=== PATIENT | male | born 1955 | race Caucasian/White ===

== ENCOUNTER 2017-10-04 10:53 | Emergency (ER) | payer BC ==
--- NOTE | 2017-10-04 11:53 | ER ---
Nurse's Notes [facility] Name: Afshin Mercado Age: 62 yrs Sex: Male : 1955 Arrival Date: 10/04/2017 Time: 10:55 Bed 15 Private MD: Edwardo Maurer T Diagnosis: Low back pain Presentation: 10/04 11:18 Presenting complaint: Patient states: low back pain for years, worse yesterday, denies iw injury, hx of degenerative disc disease, pain 8/10, pain to mid low back non radiating, aggravated by certain movements. Transition of care: patient was not received from another setting of care. Onset of symptoms was October 03, 2017. Risk Assessment: Do you want to hurt yourself or someone else? Patient reports no desire to harm self or others. Initial Sepsis Screen: Does the patient meet any 2 criteria? No. Patient's initial sepsis screen is negative. Does the patient have a suspected source of infection? No. Patient's initial sepsis screen is negative. Care prior to arrival: None. 11:18 Method Of Arrival: Ambulatory iw 11:18 Acuity: LINDA 4 iw Historical: - Allergies: 11:20 NKA; iw - PMHx: 11:20 Hypertension; Hyperlipidemia; Degenerative disc disease; iw - PSHx: 11:20 None; iw - Immunization history:: Adult Immunizations not up to date. - Social history:: Smoking status: Patient/guardian denies using tobacco, the patient reports quitting approximately 2 years ago. - Ebola Screening: : Patient negative for fever greater than or equal to 101.5 degrees Fahrenheit, and additional compatible Ebola Virus Disease symptoms Patient denies exposure to infectious person Patient denies travel to an Ebola-affected area in the 21 days before illness onset No symptoms or risks identified at this time. Screenin:50 Abuse screen: Denies threats or abuse. Nutritional screening: No deficits noted. aa5 Tuberculosis screening: No symptoms or risk factors identified. Fall Risk None identified. Assessment: 11:40 General: Appears uncomfortable, Behavior is calm, cooperative. Pain: Complains of pain aa5 in low back area and mid back area Pain does not radiate. Pain currently is 8 out of 10 on a pain scale. Quality of pain is described as sharp, Pain began chronic and got worse yesterday Is continuous, Aggravated by increased activity. Neuro: Level of Consciousness is awake, alert, obeys commands, Oriented to person, place, time, situation. Cardiovascular: No deficits noted. Respiratory: Airway is patent Respiratory effort is even, unlabored, Respiratory pattern is regular, symmetrical. GI: No signs and/or symptoms were reported involving the gastrointestinal system. : No signs and/or symptoms were reported regarding the genitourinary system. EENT: No signs and/or symptoms were reported regarding the EENT system. Derm: Skin is pink, warm \T\ dry. Musculoskeletal: Range of motion: intact in all extremities. 12:20 Reassessment: Patient is alert, oriented x 3, equal unlabored respirations, skin aa5 warm/dry/pink. Patient states feeling better. Pain: Pain currently is 5 out of 10 on a pain scale. Vital Signs: 11:20 BP 150 / 75; Pulse 64; Resp 18; Pulse Ox 96% ; Weight 88.9 kg; Height 5 ft. 8 in. iw (172.72 cm); Pain 8/10; 11:55 BP 139 / 70 LA; aa5 11:57 BP 147 / 70 RA; Pulse 68; Resp 16 S; Pulse Ox 97% on R/A; Pain 8/10; aa5 11:20 Body Mass Index 29.80 (88.90 kg, 172.72 cm) iw ED Course: 10:55 Patient arrived in ED. mr 10:56 Edwardo Maurer MD is Private Physician. mr 11:19 Triage completed. iw 11:20 Arm band placed on. iw 11:43 Mena Ojeda FNP-C is [facility]. snw 11:43 Daniel Bravo MD is Attending Physician. snw 11:48 Juana Ball, RADHA is Primary Nurse. aa5 11:50 Patient has correct armband on for positive identification. Bed in low position. Call aa5 light in reach. Side rails up X 1. Adult w/ patient. 11:52 Edwardo Maurer MD is Referral Physician. snw 12:45 Patient did not have IV access during this emergency room visit. aa5 12:45 No provider procedures requiring assistance completed. aa5 Administered Medications: 12:00 Drug: fentaNYL (PF) 75 mcg Route: IM; Site: right gluteus; aa5 12:20 Follow up: Response: No adverse reaction aa5 12:00 Drug: Decadron 8 mg Route: PO; aa5 12:45 Follow up: Response: No adverse reaction aa5 Outcome: 11:52 Discharge ordered by . delroy 12:45 Discharged to home ambulatory, with significant other. aa5 12:45 Condition: improved 12:45 Discharge instructions given to patient, Instructed on discharge instructions, follow up and referral plans. medication usage, Demonstrated understanding of instructions, follow-up care, medications, Prescriptions given X 3. 12:48 Patient left the ED. aa5 Signatures: Mena Ojeda, SENIOR VICE PRESIDENT AND CHIEF INFORMATION OFFICER-C SENIOR VICE PRESIDENT AND CHIEF INFORMATION OFFICER-Stacie Burrows mr Laura Esparza, RN RN iw Juana Ball RN RN aa5 Corrections: (The following items were deleted from the chart) 12:59 11:57 BP 147 / 70 R Arm; aa5 aa5
--- NOTE | 2017-10-04 11:53 | EDPHYS ---
Physician Documentation [facility] Name: Afshin Mercado Age: 62 yrs Sex: Male : 1955 Arrival Date: 10/04/2017 Time: 10:55 Bed 15 Private MD: Edwardo Maurer T ED Physician Daniel Bravo HPI: 10/04 12:00 This 62 yrs old Male presents to ER via Ambulatory with complaints of Back snw Pain. 12:00 The patient presents with pain that is acute, that is chronic, and decreased range of snw motion, and tenderness. The symptoms are located in the low back. Onset: The symptoms/episode began/occurred gradually, and became worse yesterday. The pain does not radiate. Associated signs and symptoms: Pertinent negatives: abdominal pain, constipation, dysuria, incontinence, numbness, tingling, urinary retention, weakness. The problem was sustained when lifting heavy object. Severity of symptoms: At their worst the symptoms were severe, in the emergency department the symptoms are unchanged. The patient has experienced similar episodes in the past, but today's symptoms are worse, pt had stem cell injection 2 years ago, no repeated sessions. The patient has not recently seen a physician. Historical: - Allergies: 11:20 NKA; iw - PMHx: 11:20 Hypertension; Hyperlipidemia; Degenerative disc disease; iw - PSHx: 11:20 None; iw - Immunization history:: Adult Immunizations not up to date. - Social history:: Smoking status: Patient/guardian denies using tobacco, the patient reports quitting approximately 2 years ago. - Ebola Screening: : Patient negative for fever greater than or equal to 101.5 degrees Fahrenheit, and additional compatible Ebola Virus Disease symptoms Patient denies exposure to infectious person Patient denies travel to an Ebola-affected area in the 21 days before illness onset No symptoms or risks identified at this time. ROS: 11:59 Constitutional: Negative for fever, chills, and weight loss, Eyes: Negative for injury, snw pain, redness, and discharge, ENT: Negative for injury, pain, and discharge, Neck: Negative for injury, pain, and swelling, Cardiovascular: Negative for chest pain, palpitations, and edema, Respiratory: Negative for shortness of breath, cough, wheezing, and pleuritic chest pain, Abdomen/GI: Negative for abdominal pain, nausea, vomiting, diarrhea, and constipation, : Negative for injury, bleeding, discharge, and swelling, MS/Extremity: Negative for injury and deformity, Skin: Negative for injury, rash, and discoloration, Neuro: Negative for headache, weakness, numbness, tingling, and seizure. 11:59 Back: Positive for pain at rest, pain with movement, Negative for radiated pain. Exam: 11:58 Constitutional: This is a well developed, well nourished patient who is awake, alert, snw and in no acute distress. Head/Face: Normocephalic, atraumatic. Eyes: Pupils equal round and reactive to light, extra-ocular motions intact. Lids and lashes normal. Conjunctiva and sclera are non-icteric and not injected. Cornea within normal limits. Periorbital areas with no swelling, redness, or edema. ENT: Nares patent. No nasal discharge, no septal abnormalities noted. Tympanic membranes are normal and external auditory canals are clear. Oropharynx with no redness, swelling, or masses, exudates, or evidence of obstruction, uvula midline. Mucous membranes moist. Neck: Trachea midline, no thyromegaly or masses palpated, and no cervical lymphadenopathy. Supple, full range of motion without nuchal rigidity, or vertebral point tenderness. No Meningismus. Chest/axilla: Normal chest wall appearance and motion. Nontender with no deformity. No lesions are appreciated. Cardiovascular: Regular rate and rhythm with a normal S1 and S2. No gallops, murmurs, or rubs. Normal PMI, no JVD. No pulse deficits. Respiratory: Lungs have equal breath sounds bilaterally, clear to auscultation and percussion. No rales, rhonchi or wheezes noted. No increased work of breathing, no retractions or nasal flaring. Abdomen/GI: Soft, non-tender, with normal bowel sounds. No distension or tympany. No guarding or rebound. No evidence of tenderness throughout. Skin: Warm, dry with normal turgor. Normal color with no rashes, no lesions, and no evidence of cellulitis. MS/ Extremity: Pulses equal, no cyanosis. Neurovascular intact. Full, normal range of motion. Neuro: Awake and alert, GCS 15, oriented to person, place, time, and situation. Cranial nerves II-XII grossly intact. Motor strength 5/5 in all extremities. Sensory grossly intact. Cerebellar exam normal. Normal gait. 11:58 Back: pain, that is moderate, of the lumbar area, left low back and right low back, ROM is painful, with flexion, CVA tenderness, is absent, vertebral tenderness, is not appreciated. Vital Signs: 11:20 BP 150 / 75; Pulse 64; Resp 18; Pulse Ox 96% ; Weight 88.9 kg; Height 5 ft. 8 in. iw (172.72 cm); Pain 8/10; 11:55 BP 139 / 70 LA; aa5 11:57 BP 147 / 70 RA; Pulse 68; Resp 16 S; Pulse Ox 97% on R/A; Pain 8/10; aa5 11:20 Body Mass Index 29.80 (88.90 kg, 172.72 cm) iw MDM: 11:43 Patient medically screened. snw 12:00 Data reviewed: vital signs, nurses notes. Data interpreted: Pulse oximetry: on room air snw is 96 %. Interpretation: acceptable. Counseling: I had a detailed discussion with the patient and/or guardian regarding: the historical points, exam findings, and any diagnostic results supporting the discharge/admit diagnosis, the presence of at least one elevated blood pressure reading (>120/80) during this emergency department visit, the need for outpatient follow up, to return to the emergency department if symptoms worsen or persist or if there are any questions or concerns that arise at home. Special discussion: I have referred the patient to see his PCP for further evaluation of high blood pressure. Based on the history and exam findings, there is no indication for further emergent testing or inpatient evaluation. I discussed with the patient/guardian the need to see the back specialist for further evaluation of the symptoms. I discussed with the patient/guardian the need to see the primary care provider for further evaluation of the symptoms. 10/04 11:51 Order name: Bilateral blood pressure; Complete Time: 12:08 snw Administered Medications: 12:00 Drug: fentaNYL (PF) 75 mcg Route: IM; Site: right gluteus; aa5 12:20 Follow up: Response: No adverse reaction aa5 12:00 Drug: Decadron 8 mg Route: PO; aa5 12:45 Follow up: Response: No adverse reaction aa5 Disposition: 10/04/17 11:52 Discharged to Home. Impression: Low back pain. - Condition is Stable. - Discharge Instructions: Back Pain, Adult, Musculoskeletal Pain, Cryotherapy, Heat Therapy. - Prescriptions for Ultram 50 mg Oral Tablet - take 1 tablet by ORAL route every 8-12 hours As needed; 15 tablet. Diclofenac Sodium 75 mg Oral Tablet Sustained Release - take 1 tablet by ORAL route 2 times per day; 30 tablet. orphenadrine citrate 100 mg Oral Tablet Sustained Release - take 1 tablet by ORAL route 2 times per day As needed; 20 tablet. - Medication Reconciliation Form, Thank You Letter, Antibiotic Education, Prescription Opioid Use form. - Follow up: Edwardo Maurer MD; When: 2 - 3 days; Reason: Recheck today's complaints, Continuance of care, Re-evaluation by your physician. Follow up: Emergency Department; When: As needed; Reason: Worsening of condition. Addendum: 10/05/2017 16:08 Co-signature as Attending Physician, Daniel Bravo MD I agree with the assessment and c díaz plan of care. Signatures: Daniel Bravo MD MD cha Therrien, Shelly, TONI-C FREELANCE OPERATOR-Csnw Laura Esparza, RADHA RN iw Juana Ball RN RN aa5 Corrections: (The following items were deleted from the chart) 10/04 12:48 11:52 10/04/2017 11:52 Discharged to Home. Impression: Low back pain. Condition is aa5 Stable. Forms are Medication Reconciliation Form, Thank You Letter, Antibiotic Education, Prescription Opioid Use. Follow up: Edwardo Maurer; When: 2 - 3 days; Reason: Recheck today's complaints, Continuance of care, Re-evaluation by your physician. Follow up: Emergency Department; When: As needed; Reason: Worsening of condition. snw
[2017-10-04] MEDS ORDERED: DEXAMETHASONE 4 MG TAB ONE (11:56)
[2017-10-04] MEDS ORDERED: FENTANYL CITR 100 MCG/2 ML ONE (11:57)
== END 2017-10-04 12:48 | disposition home or self-care (01) ==
LOC: ER 10:53
DX: M54.5 Low back pain (principal); I10 Essential (primary) hypertension; E78.5 Hyperlipidemia, unspecified
CPT/HCPCS: 96372; 99283; J3010

== ENCOUNTER 2018-01-12 07:50 | Emergency (ER) | payer BC ==
--- OUTSIDE RECORDS SUMMARY | 2018-01-12 08:39 | XMS REPORT | Continuity of Care Document ---
:1955 Author Organization Interface Problems Problem Status Onset Classification Date Comments Source Date Reported SPONDYLOSIS Active [facility] 6 Ganesh DDD , Active Problem 01/24/2016 Ortho lumbar(<span and Spine ID="[id number]">Confirmed</s martini>) Acid reflux Active Problem 01/24/2016 Ortho and Spine HNP (<span Active Problem 01/24/2016 Ortho ID="[id number] and Spine 3">Confirmed</s martini>) HLD (<span Active Problem 01/24/2016 Ortho ID="[id number] and Spine 9">Confirmed</s martini>) HTN (<span Active Problem 01/24/2016 Ortho ID="[id number] and Spine 3">Confirmed</s martini>) Paresthesia of Active Problem 01/24/2016 Ortho both hands and Spine Spondylosis Active Problem 01/24/2016 Ortho and Spine Medications Medication Details Route Status Patient Ordering Order Source Instructions Provider Date Insulin, Aspart, 8 unit, 0.08 No Longer Human mL, Route: Active 2015 Ortho SUB-Q, Drug and form: SOLN, Spine Sliding Scale, Dosing Weight 88.636, kg, PRN Blood Glucose Results, Start date: 01/21/16 15:02:00 CDT, Duration: 30 day, Stop date: 02/20/16 14:01:00 CSTNotes: Roll in palms of hands gently; Do not shake vigorously. (Same as: NovoLOG) "single patient use only" WASTE: F/P - Black; E - Municipal Trash Bin Stable for 28 days at room temperature. Expires in days from D ate Acetaminophen 325 MG 1 tab, Route: No Longer / Hydrocodone PO, Drug Form: Active 2015 Ortho Bitartrate 10 MG TAB, Dosing and Oral Tablet [Kerby Weight 88.636, Spine 10/325] kg, ONCE, PRN Pain Score 4-6, Start date: 01/21/16 15:02:00 CDTNotes: Do not exceed 4gm/day of acetaminophen. (Same as: Kerby 325/10) Acetaminophen 325 MG 1 tab, Route: No Longer / Hydrocodone PO, Drug Form: Active 2015 Ortho Bitartrate 5 MG Oral TAB, Dosing and Tablet [Kerby 5/325] Weight 88.636, Spine kg, ONCE, PRN Pain Score 1-3, Start date: 01/21/16 15:02:00 CDTNotes: (Same as: Kerby 325/5) Do not exceed 4gm/day of acetaminophen. Morphine 2 mg, 0.2 mL, No Longer Route: IVP, Active 2015 Ortho Drug form: INJ, and Q5Min, Dosing Spine Weight 88.636, kg, PRN Pain Score 4-6, Start date: 01/21/16 15:02:00 CDT, Duration: 5 doses or times, Stop date: Limited # of timesNotes: (Same as:MORPhine Sulfate) Acetaminophen 1,000 mg, 2 No Longer tab, Route: PO, Active 2015 Ortho Drug form: TAB, and ONCE, Dosing Spine Weight 88.636, kg, PRN Pain Score 1-3, Start date: 01/21/16 15:02:00 CDT, Duration: 1 doses or times, Stop date: Limited # of timesNotes: Max acetaminophen 4000 mg/day (4 gm/day). (Same as: Tylenol Extra Strength) Hydralazine 10 mg, 0.5 mL, No Longer Route: IVP, Active 2015 Ortho Drug form: INJ, and Q20Min, Dosing Spine Weight 88.636, kg, PRN Elevated BP, Start date: 01/21/16 15:02:00 CDT, Duration: 2 doses or times, Stop date: Limited # of timesNotes: (Same as: Apresoline) Push over 5 minutes Labetalol 10 mg, 2 mL, No Longer Route: IVP, Active 2015 Ortho Drug form: INJ, and Q5Min, Dosing Spine Weight 88.636, kg, PRN Elevated BP, Start date: 01/21/16 15:02:00 CDT, Duration: 5 doses or times, Stop date: Limited # of times Ondansetron 4 mg, 2 mL, No Longer Route: IVP, Active 2015 Ortho Drug form: INJ, and ONCE, Dosing Spine Weight 88.636, kg, PRN Nausea & Vomiting, Start date: 01/21/16 15:02:00 CDTNotes: (Same as: Zofran) MEDICATION WASTE Product Size: 4 mg Product Wasted: ___ mg Flumazenil 0.2 mg, 2 mL, No Longer Route: IVP, Active 2015 Ortho Drug form: INJ, and PRN, Dosing Spine Weight 88.636, kg, PRN Benzodiazepine Reversal, Initial dose, Start date: 01/21/16 15:02:00 CDT, Duration: 30 day, Stop date: 02/20/16 14:01:00 CSTNotes: (Same as: Romazicon) Naloxone 0.4 mg, 1 mL, No Longer Route: IVP, Active 2015 Ortho Drug form: INJ, and Q2MIN, Dosing Spine Weight 88.636, kg, PRN Narcotic Reversal, Start date: 01/21/16 15:02:00 CDT, Duration: 8 doses or times, Stop date: Limited # of timesNotes: Same as Narcan Hydromorphone 0.5 mg, 0.25 No Longer mL, Route: IVP, Active 2015 Ortho Drug form: INJ, and Q5Min, Dosing Spine Weight 88.636, kg, PRN Pain Score 7-10, Start date: 01/21/16 15:02:00 CDT, Duration: 4 doses or times, Stop date: Limited # of timesNotes: Same as Dilaudid Acetaminophen 325 MG 1 tab, Route: No Longer / Hydrocodone PO, Drug Form: Active 2015 Ortho Bitartrate 10 MG TAB, Dosing and Oral Tablet Weight 88.636, Spine kg, Q4H, PRN Pain Score 4-6, Start date: 01/21/16 14:45:00 CDT, Duration: 30 day, Stop date: 02/20/16 14:44:00 CSTNotes: Do not exceed 4gm/day of acetaminophen. (Same as: Kerby 325/10) Morphine 2 mg, 0.2 mL, No Longer Route: IVP, Active 2015 Ortho Drug form: INJ, and Q3H, Dosing Spine Weight 88.636, kg, PRN Pain Score 1-3, Start date: 01/21/16 14:45:00 CDT, Duration: 30 day, Stop date: 02/20/16 14:44:00 CSTNotes: (Same as:MORPhine Sulfate) Ancef 2 gm, 100 mL, Inactive Route: IVPB, 2015 Ortho Drug form: INJ, and ONCE, Dosing Spine Weight 88.636, kg, Start date: 01/21/16 10:42:00 CDT, Duration: 1 doses or times, Stop date: 01/21/16 10:42:00 CDT, Surgical Prophylaxis Only; For patients Notes: Same as Ancef Lactated Ringers 1,000 mL, Rate: No Longer 1,000 mL 40 ml/hr, Active 2015 Ortho Infuse over: 25 and hr, Route: IV, Spine Dosing Weight 88.636 kg, Total Volume: 1,000, Start date: 01/21/16 10:42:00 CDT, Duration: 30 day, Stop date: 02/20/16 10:41:00 [employer] Vitamin B12 See Active Instructions, 0 2015 Ortho Refill(s) and Spine multivitamin See Active Instructions, 2016 Ortho Daily, 0 and Refill(s) Spine Hydrochlorothiazide 1 tab, PO, Active 25 MG / Losartan Daily, HOLD AM 2016 Ortho Potassium 100 MG DOS, # 90 tab, and Oral Tablet 0 Refill(s) Spine atorvastatin 10 MG 10 mg=1 tab, Active Oral Tablet PO, Bedtime, # 2016 Ortho [Lipitor] 90 tab, 0 and Refill(s) Spine Allergies, Adverse Reactions, Alerts Substance Category Reaction Severity Reaction Status Date Comments Source type Reported NKDA Assertion Drug Active allergy Ortho and Spine Immunizations Immunization Date Given Site Status Last Updated Comments Source Hx tetanus toxoid 01/17/2016 completed [facility] Admin Note: Ortho vaccine<sup>1</rao STATES REC'D and Spine p> TETANUS VACCINE WITHIN THE LAST 10YRS. Results Order Name Results Value Reference Date Interpretation Comments Source Range Spine Spine lumbar EXAM: CT LUMBAR discogram SPINE WITHOUT intravenous CONTRAST 01/20 - [facility] lumbar wo wo contrast /2015 - [facility] contrast [facility] CT DATE: 01/21/2016 at 1524 hours Read by: Marvin Gilliland MD Dictated Date/time: 01/22/16 10:35 Electronically Signed by: Marvin Gilliland MD 01/22/16 19:39 FINAL REPORT INDICATION: Backache. Status post 2 level discography of the lumbar spine. TECHNIQUE: CT discograms of the L4-L5 and L5-S1 levels of the lumbar spine were reviewed in 3 planes. FINDINGS: L4-5: Concentric concentric tear posteriorly with leakage of contrast into the anterior epidural space. Contrast can be traced up to the L2-L3 level. Contrast is also identified in the exiting left extraforaminal L4 nerve root sleeve L5-S1: Concentric subannular tear posteriorly without contrast leakage into the epidural space. Closed pars defects of L5 laterally without anterior subluxation of L5 on S1. IMPRESSION: 1. Annular tear at L4-L5 with leakage of contrast into the epidural space and the exiting left L4 nerve root. 2. Annular tear at L5-S1 without leakage. 3. Bilateral spondylolysis at L5 without spondylolisthesis. ELECTROLYTE AGAP 11.8 meq/L 10.0 - 01/20 [facility] S 20.0 and Spine ELECTROLYTE eGFR 101 01/20 Result Comment: The eGFR is calculated using the CKD-EPI formula. In most young, healthy individuals the eGFR will be > 90 mL/min/1.73m2. The eGFR declines with age. An eGFR of 60-89 may be normal in [facility] S mL/min/1.7 /2016 some populations, particularly the elderly, for whom the CKD-EPI formula has not been extensively validated. Use of the eGFR is not recommended in the following populations: and Spine 3m2 Individuals with unstable creatinine concentrations, including patients and those with serious co-morbid conditions. Patients with extremes in muscle mass or diet. The data above are obtained from the National Kidney Disease Education Program (NKDEP) which additionally recommends that when the eGFR is used in patients with extremes of body mass index for purposes of drug dosing, the eGFR should be multiplied by the estimated BMI. ELECTROLYTE Calcium Lvl 9.1 mg/dL 8.5 - 10.5 01/20 Ortho S and Spine ELECTROLYTE CO2 27 meq/L 24 - 32 01/20 Ortho S and Spine ELECTROLYTE Sodium Lvl 141 meq/L 135 - 145 01/20 Ortho S and Spine ELECTROLYTE Creatinine 0.72 mg/dL 0.50 - 01/20 Ortho S Lvl 1.40 /2015 and Spine ELECTROLYTE Glucose Lvl 99 mg/dL 70 - 99 01/20 Ortho S and Spine ELECTROLYTE BUN 12 mg/dL 7 - 22 01/20 Ortho S and Spine ELECTROLYTE Chloride Lvl 106 meq/L 95 - 109 01/20 Ortho S and Spine ELECTROLYTE Potassium 3.8 meq/L 3.5 - 5.1 01/20 Ortho S Lvl and Spine HEMATOLOGY Segs-Bands # 4.7 K/CMM 1.5 - 8.1 01/20 Ortho and Spine HEMATOLOGY Basophils 0.6 % 0.0 - 1.0 01/20 Ortho and Spine HEMATOLOGY Lymphocytes 1.9 K/CMM 1.0 - 5.5 01/20 Ortho # and Spine HEMATOLOGY Monocytes # 0.5 K/CMM 0.0 - 0.8 01/20 Ortho and Spine HEMATOLOGY Segs 65.2 % 45.0 - 01/20 Ortho 75.0 /2015 and Spine HEMATOLOGY Lymphocytes 26.2 % 20.0 - 10 Ortho 40.0 /2016 and Spine HEMATOLOGY Monocytes 7.4 % 2.0 - 12.0 01/20 Ortho and Spine HEMATOLOGY Eosinophils 0.6 % 0.0 - 4.0 01/20 Ortho and Spine HEMATOLOGY INR 0.97 0.85 - 01/20 Ortho 1.17 /2015 and Spine HEMATOLOGY PROTIME 13.1 s 12.0 - 01/20 Ortho 14.7 /2015 and Spine HEMATOLOGY aPTT 30.7 s 22.9 - 01/20 Ortho 35.8 /2016 and Spine HEMATOLOGY Hgb 15.5 g/dL 14.0 - 01/20 Ortho 18.0 /2015 and Spine HEMATOLOGY Hct 45.4 % 42.0 - 01/20 Ortho 54.0 /2016 and Spine HEMATOLOGY MCV 87.9 fL 80.0 - 01/20 Ortho 94.0 /2016 and Spine HEMATOLOGY MCH 30.1 pg 27.0 - 01/20 Ortho 31.0 /2015 and Spine HEMATOLOGY WBC 7.3 K/CMM 3.7 - 10.4 01/20 Ortho and Spine HEMATOLOGY RBC 5.16 M/CMM 4.70 - 01/20 Ortho 6. and Spine HEMATOLOGY MCHC 34.3 g/dL 32.0 - 01/20 Ortho 36.0 /2015 and Spine HEMATOLOGY RDW 13.0 % 11.5 - 01/20 Ortho 14.5 /2015 and Spine HEMATOLOGY Platelet 198 K/CMM 133 - 450 01/20 Ortho and Spine HEMATOLOGY MPV 7.9 fL 7.4 - 10.4 01/20 Ortho and Spine Vital Signs Vital Sign Value Date Comments Source Systolic (mm Hg) 150 01/21/2016 Ortho and Spine Diastolic (mm Hg) 89 01/21/2016 Ortho and Spine Respitory Rate 16 01/21/2016 Ortho and Spine Systolic (mm Hg) 141 01/21/2016 Ortho and Spine Diastolic (mm Hg) 73 01/21/2016 Ortho and Spine Respitory Rate 16 01/21/2016 Ortho and Spine Systolic (mm Hg) 145 01/21/2016 Ortho and Spine Diastolic (mm Hg) 76 01/21/2016 Ortho and Spine Respitory Rate 16 01/21/2016 Ortho and Spine Heart Rate 63 01/21/2016 Ortho and Spine Temperature Oral (F) 98 F 01/21/2016 Ortho and Spine Weight 88.636 01/17/2016 Ortho and Spine BMI Calculated 29.71 01/17/2016 Ortho and Spine Height 172.72 cm 01/17/2016 Ortho and Spine Encounters Location Location Encounter Encounter Reason Attending ADM DC Status Source Details Type Number For Provider Date Date Visit [id number] Micheller Maikel 01/20 01/21 [facility] Procedures Procedure Code Date Perfomer Comments Source Colonoscopy<sup> [id number] 2012 Ortho and 1</sup> Spine
--- NOTE | 2018-01-12 09:15 | EDPHYS ---
Physician Documentation [facility] Name: Afshin Mercado Age: 62 yrs Sex: Male : 1955 Arrival Date: 01/12/2018 Time: 07:53 Bed 15 Private MD: ED Physician Daniel Bravo HPI: 01/12 08:43 This 62 yrs old Male presents to ER via Ambulatory with complaints of Fever, jr8 Flu Symptoms. 08:43 The patient reports fever, not measured (subjective). Onset: The symptoms/episode jr8 began/occurred suddenly, 4 day(s) ago. Modifying factors: there are no obvious modifying factors. Associated signs and symptoms: Pertinent positives: chills, cough. Severity of symptoms: At their worst the symptoms were moderate in the emergency department the symptoms are unchanged. The patient has not experienced similar symptoms in the past. The patient has not recently seen a physician. Historical: - Allergies: 08:01 NKA; ss - Home Meds: 07:55 amlodipine 5 mg tab 1 tab once daily [Active]; atorvastatin 10 mg oral tab 1 tab once rb1 daily [Active]; losartan-hydrochlorothiazide 100-25 mg oral tab 1 tab once daily [Active]; - PMHx: 08:01 Degenerative disc disease; Hyperlipidemia; Hypertension; ss - PSHx: 08:01 None; ss - Immunization history:: Adult Immunizations up to date. - Social history:: Smoking status: Patient/guardian denies using tobacco, but has a distant history of tobacco abuse. - Ebola Screening: : Patient denies exposure to infectious person Patient denies travel to an Ebola-affected area in the 21 days before illness onset. ROS: 09:13 Eyes: Negative for injury, pain, redness, and discharge, ENT: Negative for injury, jr8 pain, and discharge, Neck: Negative for injury, pain, and swelling, Cardiovascular: Negative for chest pain, palpitations, and edema, Abdomen/GI: Negative for abdominal pain, nausea, vomiting, diarrhea, and constipation, Back: Negative for injury and pain, MS/Extremity: Negative for injury and deformity, Skin: Negative for injury, rash, and discoloration, Neuro: Negative for headache, weakness, numbness, tingling, and seizure. 09:13 Constitutional: Positive for chills, fever. 09:13 Respiratory: Positive for cough, Negative for dyspnea on exertion, shortness of breath, sputum production, wheezing. Exam: 09:13 Eyes: Pupils equal round and reactive to light, extra-ocular motions intact. Lids and jr8 lashes normal. Conjunctiva and sclera are non-icteric and not injected. Cornea within normal limits. Periorbital areas with no swelling, redness, or edema. ENT: Nares patent. No nasal discharge, no septal abnormalities noted. Tympanic membranes are normal and external auditory canals are clear. Oropharynx with no redness, swelling, or masses, exudates, or evidence of obstruction, uvula midline. Mucous membranes moist. Neck: Trachea midline, no thyromegaly or masses palpated, and no cervical lymphadenopathy. Supple, full range of motion without nuchal rigidity, or vertebral point tenderness. No Meningismus. Cardiovascular: Regular rate and rhythm with a normal S1 and S2. No gallops, murmurs, or rubs. Normal PMI, no JVD. No pulse deficits. Respiratory: Lungs have equal breath sounds bilaterally, clear to auscultation and percussion. No rales, rhonchi or wheezes noted. No increased work of breathing, no retractions or nasal flaring. Abdomen/GI: Soft, non-tender, with normal bowel sounds. No distension or tympany. No guarding or rebound. No evidence of tenderness throughout. Back: No spinal tenderness. No costovertebral tenderness. Full range of motion. Skin: Warm, dry with normal turgor. Normal color with no rashes, no lesions, and no evidence of cellulitis. MS/ Extremity: Pulses equal, no cyanosis. Neurovascular intact. Full, normal range of motion. Neuro: Awake and alert, GCS 15, oriented to person, place, time, and situation. Cranial nerves II-XII grossly intact. Motor strength 5/5 in all extremities. Sensory grossly intact. Cerebellar exam normal. Normal gait. Vital Signs: 08:01 BP 144 / 69; Pulse 63; Resp 15; Temp 98.3(O); Pulse Ox 99% on R/A; Weight 88 kg; Height ss 5 ft. 8 in. (172.72 cm); Pain 5/10; 09:00 BP 138 / 70; Pulse 64; Resp 18; Pulse Ox 99% on R/A; rb1 08:01 Body Mass Index 29.50 (88.00 kg, 172.72 cm) MDM: 08:01 Patient medically screened. jr8 09:13 Data reviewed: vital signs, nurses notes, lab test result(s), Flu: positive radiologic jr8 studies, plain films. Data interpreted: Pulse oximetry: on room air is 99 %. Interpretation: normal. Counseling: I had a detailed discussion with the patient and/or guardian regarding: the historical points, exam findings, and any diagnostic results supporting the discharge/admit diagnosis, lab results, radiology results, the need for outpatient follow up, a family practitioner, to return to the emergency department if symptoms worsen or persist or if there are any questions or concerns that arise at home. 09:13 ED course: Patient has had symptoms for 4 days now. Tamiflu not indicated . jr8 01/12 08:13 Order name: Flu; Complete Time: 09:13 jr8 01/12 08:13 Order name: XRAY Chest Pa And Lat (2 Views) jr8 Administered Medications: No medications were administered Disposition: 01/13 07:26 Co-signature as Attending Physician, Daniel Bravo MD I agree with the assessment and renetta plan of care. Disposition: 01/12/18 09:14 Discharged to Home. Impression: Influenza due to identified novel influenza A virus. - Condition is Stable. - Discharge Instructions: Influenza, Adult. - Medication Reconciliation Form, Thank You Letter, Antibiotic Education, Prescription Opioid Use form. - Follow up: Private Physician; When: 2 - 3 days; Reason: Recheck today's complaints, Continuance of care, Re-evaluation by your physician. - Problem is new. - Symptoms are unchanged. - Notes: Over the counter Tylenol and Ibuprofen for fever and pain OTC cough medicine as needed Signatures: Dispatcher [employer] EDOK Daniel Bravo MD MD cha Smirch, Shelby, RN RN ss Ashwin Mark PA PA jr8 Jolly Lima, RN RN rb1 Corrections: (The following items were deleted from the chart) 01/12 09:23 09:14 01/12/2018 09:14 Discharged to Home. Impression: Influenza due to identified ss novel influenza A virus. Condition is Stable. Forms are Medication Reconciliation Form, Thank You Letter, Antibiotic Education, Prescription Opioid Use. Follow up: Private Physician; When: 2 - 3 days; Reason: Recheck today's complaints, Continuance of care, Re-evaluation by your physician. Problem is new. Symptoms are unchanged. jr8
--- NOTE | 2018-01-12 09:15 | ER ---
Nurse's Notes [facility] Name: Afshin Mercado Age: 62 yrs Sex: Male : 1955 Arrival Date: 01/12/2018 Time: 07:53 Bed 15 Private MD: Diagnosis: Influenza due to identified novel influenza A virus Presentation: 01/12 08:00 Presenting complaint: Patient states: generalized body aches and mild cough that began ss 3 days ago. Unknown fever. Transition of care: patient was not received from another setting of care. Onset of symptoms was January 09, 2018. Risk Assessment: Do you want to hurt yourself or someone else? Patient reports no desire to harm self or others. Initial Sepsis Screen: Does the patient meet any 2 criteria? No. Patient's initial sepsis screen is negative. Does the patient have a suspected source of infection? No. Patient's initial sepsis screen is negative. Care prior to arrival: None. 08:00 Method Of Arrival: Ambulatory ss 08:00 Acuity: LINDA 4 ss Historical: - Allergies: 08:01 NKA; ss - Home Meds: 07:55 amlodipine 5 mg tab 1 tab once daily [Active]; atorvastatin 10 mg oral tab 1 tab once rb1 daily [Active]; losartan-hydrochlorothiazide 100-25 mg oral tab 1 tab once daily [Active]; - PMHx: 08:01 Degenerative disc disease; Hyperlipidemia; Hypertension; ss - PSHx: 08:01 None; ss - Immunization history:: Adult Immunizations up to date. - Social history:: Smoking status: Patient/guardian denies using tobacco, but has a distant history of tobacco abuse. - Ebola Screening: : Patient denies exposure to infectious person Patient denies travel to an Ebola-affected area in the 21 days before illness onset. Screenin:55 Abuse screen: Denies threats or abuse. Nutritional screening: decreased appetite . rb1 Tuberculosis screening: No symptoms or risk factors identified. Fall Risk None identified. Assessment: 07:55 General: Appears uncomfortable, Behavior is calm, cooperative, Reports chills for fever rb1 for feeling ill for fatigue for since Thursday. Pain: Complains of pain in generalized Pain currently is 5 out of 10 on a pain scale. Quality of pain is described as aching. Neuro: Level of Consciousness is awake, alert, obeys commands, Oriented to person, place, time, situation. Cardiovascular: Capillary refill < 3 seconds is brisk in bilateral fingers. Respiratory: Reports cough that is productive, green sputum Airway is patent Respiratory effort is even, unlabored, Respiratory pattern is regular, symmetrical. GI: Reports diarrhea. : No signs and/or symptoms were reported regarding the genitourinary system. Derm: Skin is pink, warm \T\ dry. 08:45 Reassessment: Patient appears in no apparent distress at this time. No changes from rb1 previously documented assessment. at bedside. Vital Signs: 08:01 BP 144 / 69; Pulse 63; Resp 15; Temp 98.3(O); Pulse Ox 99% on R/A; Weight 88 kg; Height ss 5 ft. 8 in. (172.72 cm); Pain 5/10; 09:00 BP 138 / 70; Pulse 64; Resp 18; Pulse Ox 99% on R/A; rb1 08:01 Body Mass Index 29.50 (88.00 kg, 172.72 cm) ED Course: 07:53 Patient arrived in ED. rg4 07:55 Patient has correct armband on for positive identification. Bed in low position. Call rb1 light in reach. Side rails up X 1. Pulse ox on. NIBP on. 08:01 Triage completed. ss 08:01 Ashwin Mark PA is PHCP. jr8 08:01 Daniel Bravo MD is Attending Physician. jr8 08:01 Arm band placed on right wrist. ss 08:13 Jolly Lima, RN is Primary Nurse. rb1 08:27 Flu Sent. mh5 08:27 Flu and/or RSV swab sent to lab. mh5 08:33 Patient moved to radiology via wheelchair. mh1 08:34 XRAY Chest Pa And Lat (2 Views) In Process Unspecified. EDMS 08:40 Patient moved back from radiology. 1 09:23 No provider procedures requiring assistance completed. Patient did not have IV access ss during this emergency room visit. Administered Medications: No medications were administered Outcome: 09:14 Discharge ordered by . jr8 09:23 Discharged to home ambulatory. 09:23 Condition: good 09:23 Discharge instructions given to patient, family, Instructed on discharge instructions, follow up and referral plans. Demonstrated understanding of instructions, follow-up care. 09:23 Patient left the ED. ss Signatures: Dispatcher [employer] Karen Leal 1 Khalida Justice RN RN Ashwin Mark PA PA 8 Jolly Lima RN RN [facility] Kenia Guerrero 4 Stacie Thornton 5
--- NOTE | 2018-01-12 09:24 | RAD REPORT ---
EXAM DESCRIPTION: Judy Edwards (2 Views)01/12/2018 8:43 am CLINICAL HISTORY: Cough COMPARISON: 2009 FINDINGS: The lungs appear clear of acute infiltrate. The heart is normal size IMPRESSION: No acute abnormalities displayed
== END 2018-01-12 09:23 | disposition home or self-care (01) ==
LOC: ER 07:50
DX: J10.1 Influenza due to other identified influenza virus with other respiratory manifestations (principal); I10 Essential (primary) hypertension; E78.5 Hyperlipidemia, unspecified
CPT/HCPCS: 71046; 87804; 99283

== ENCOUNTER 2019-11-19 08:21 | Emergency (ER) | payer OTHER, BC ==
[2019-11-19] MEDS ORDERED: dexAMETHasone 10 MG/ML VIAL ONE (09:04)
[2019-11-19] MEDS ORDERED: KETOROLAC 30 MG/ML INJ ONE (09:04)
--- OUTSIDE RECORDS SUMMARY | 2019-11-19 09:09 | XMS REPORT | Continuity of Care Document ---
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 ctures are unremarkable. There is no evidence of obstruction or ileus. A normal appendix is visualized. Evaluation of the gastrointestinal structures is limited due to lack of oral contrast. 9. Small right inguinal ciera ia measuring 2.7 x 2.3 cm in cross-section. There is no herniation of bowel. 10. The heart is normal in size. There is no per icardial effusion. 11. Mild coronary artery calcifications. 12. The regional skeleton is unremarkable. SL: [id number] Chest 1view DX Clinical Indication: - none ; no history is provided at the time of dictation. 07/01/2018 [facility] Comparison: Prior radiographs dated 06/28/2018. FINDINGS: The portable AP single view radiograph provided for review. The exam demonstrates limite d decreased lung volumes without dense airspace consolidation, large pleural effusion or detectable pneumothorax. The heart size and pulmonary vasculature are nor mal. The trachea is midline. There are no clinically significant osseous abno rmalities noted. Overlapping electrocardiogram leads and wires. IMPRESSION: No chest radiographic evidence of acute cardiopu lmonary disease. SL: APATIL-M Chest 2 views DX Clinical Indication: 63 years Male with Coughing - preop 06/28/2018 [facility] Comparison: None FINDINGS: The PA and lateral chest radiographs shows kenn l lung volumes. No interstitial or airspace opacities. No pleural effusion. No pneumothorax. The cardiac silhouette is normal. Mild prominence of the left hilar region due to prominent pulmonary vasculature. The trachea is midline. There are no acute osseous abnormalities noted. IMPRESSION: No acute cardiopulmonary abnormality. SL: [id number] Abdominal Aorta with Clinical Indication: - I70. 0 Atherosclerosis of aorta, I73.9 Peripheral vascular disease, unspecified; preoperative evaluation for arterial blockage in the legs. 06/15/2018 [facility] runoff CTA Comparison: None TECHNIQUE: CT angiography of the abdomen, pelvis, and bilateral lower extremities was performed after administration of iodinated contrast. Coronal and sagittal reconstructions were obtained. 3-D recons truction imaging, MIP with p ostprocessing was also performed of the arterial vessels. CT imaging performed at this location utilizes radiation dose optimization techniques which include one or more of the following: -Automated exposure control -Adjustment of the mA and/or kV according to pat ient size -Use of iterative reconstruction technique CT Radiation Dose DLP 609 mGy-cm FINDINGS: ARTERIAL EVALUATION: Severe multifocal atheroscle rosis throughout the abdominal aorta without significant stenosis or aneurysm. No dissection. The celiac, superior mesente shekhar and inferior mesenteric arteries appear unremarkable. The visceral arterial branches appear unremarkable. The renal arteries are patent. RIGHT LOWER EXTREMITY: Aortoiliac inflow: Multifoca l atherosclerosis in the right common iliac artery. There is a focal moderate to severe stenosis of the distal right common iliac artery (approximately 75%). Femoral-popliteal outflow: T he common femoral, superficial femoral, and popliteal arteries are patent. The profunda femoris artery is also patent. Infrapopliteal runoff: The a nterior tibial, posterior tibial, and peroneal arteries are patent. The dosalis pedis artery is patent. LEFT LOWER EXTREMITY: Aortoiliac inflow: The commo n iliac and external iliac arteries are patent. Severe multifocal stenosis of the left common iliac artery (greater than 90%). Femoral-popliteal outflow: T he common femoral, superficial femoral, and popliteal arteries are patent. The profunda femoris artery is also patent. Infrapopliteal runoff: The a nterior tibial, posterior tibial, and peroneal arteries are patent. The dosalis pedis artery is patent. VISUALIZED LUNG BASES: Unremarkable. ABDOMINAL SOLID ORGANS: The arterial phase contrast-enhanced images of the liver, spleen, pancreas, kidneys and adrenals are unremarkable. The gallbladder is present. PERITONEUM AND RETROPERITONE UM: There is no retroperitoneal or abdominal lymphadenopathy. There is no abdominal ascites. STOMACH AND BOWEL: No eviden ce of bowel obstruction. No bowel wall thickening or perienteric inflammation. BLADDER: The bladder is unremarkable. OSSEOUS STRUCTURES: There are no acute osseous a bnormalities seen. IMPRESSION: 1. Left leg: Severe multifo mandie stenosis of the left common iliac artery (greater than 90%). 2. Right leg: Moderate to s evere stenosis of the right common iliac artery (approximately 75%). 3. No acute abnormality abdomen or pelvis. SL: [id number] Spine lumbar wo EXAM: CT LUMBAR discogram SPINE WITHOUT intravenous CONTRAST 01/21/[address] [facility] [place] contrast CT DATE: 01/21/2016 at 1524 hours INDICATION: Backache. Status post 2 level discog glen of the lumbar spine. TECHNIQUE: CT discograms of the L4-L5 and L5-S1 levels of the lumbar spine were reviewed in 3 planes. FINDINGS: L4-5: Concentric concentric tear posteriorly with leakage of contrast into the anterior epidural space. Contrast can be traced up to the L2-L3 level. Contrast is also identified in the exiting left extraforaminal L4 nerve root sleeve L5-S1: Concentric subannula r tear posteriorly without contrast leakage into the epidural space. Closed pars defects of L5 laterally without ante rior subluxation of L5 on S1. IMPRESSION: 1. Annular tear at L4-L5 wi th leakage of contrast into the epidural space and the exiting left L4 nerve root. 2. Annular tear at L5-S1 without leakage. 3. Bilateral spondylolysis at L5 without spondy lolisthesis. Consultation Notes No Data Provided for This Section Discharge Summaries No Data Provided for This Section History and Physicals No Data Provided for This Section Vital Signs Vital Sign Value Date Comments Source Respitory Rate 13 07/01/2018 [facility] Systolic (mm Hg) 124 07/01/2018 [facility] [facility] Diastolic (mm Hg) 109 07/01/2018 [facility] st Systolic (mm Hg) 141 07/01/2018 [place] Diastolic (mm Hg) 74 07/01/[address] Respitory Rate 14 07/01/2018 [place] Systolic (mm Hg) 140 07/01/2018 [place] Diastolic (mm Hg) 68 07/01/2018 [facility] st Respitory Rate 11 07/01/2018 [facility] Height 170 cm 06/30/2018 [facility] Weight 88.001 06/30/2018 [facility] BMI Calculated 30.45 06/30/2018 [facility] Heart Rate 61 06/28/2018 [facility] Temperature Oral (F) 97.8 F 06/28/2018 [facility] Weight 88.182 06/28/2018 [facility] BMI Calculated 30.45 06/28/2018 [facility] Height 170.18 cm 06/28/2018 [facility] Systolic (mm Hg) 150 01/21/2016 [facility] Diastolic (mm Hg) 89 01/21/2016 [facility] Respitory Rate 16 01/21/2016 [facility] Systolic (mm Hg) 141 01/21/2016 [facility] Diastolic (mm Hg) 73 01/21/2016 [facility] Respitory Rate 16 01/21/2016 [facility] Systolic (mm Hg) 145 01/21/2016 [facility] Diastolic (mm Hg) 76 01/21/2016 [facility] Respitory Rate 16 01/21/2016 [facility] Heart Rate 63 01/21/2016 [facility] Temperature Oral (F) 98 F 01/21/2016 [facility] Weight 88.636 01/17/2016 [facility] BMI Calculated 29.71 01/17/2016 [facility] Height 172.72 cm 01/17/2016 [facility] Encounters Location Location Encounter Encounter Reason Attending ADM [place] Stat us Source Details Type Number For Provider Date Date Visit [facility] Surgery [id number] Amir Maikel 01/20 01/21 [facility] [place] /2015 [facility] Outpatient [id number] Fernando 06/15 06/16 [facility] Inpatient [id number] 06/30 07/01 [facility]2018 [facility] Outpatient [id number] Fernando 07/16 07/17 [facility] Outpatient [id number] [place] 07/20 Active [facility] [place] Outpatient [id number] Campbell 10/19 Active [facility] Ambulatory [id number] Campbell 10/19 10/19 [facility] [place] Procedures Procedure Code Date Perfomer Comments Source Colonoscopy<sup> [id number] 2012 Medic al 1</sup> Group[id number] Assessment and Plan Date Source Extracted from:Title: Clinical Document 07/01/2018 [facility] Author: Gina Robles [employer] Date: 07/01/18 Discharge Summary Name: Record Number: Admission Date: 06/30/2018 Discharge Date: 07/01/2018 Copies to: Diagnoses: CAD Procedures: Abdominal and bilateral lowe r extremity angiogram, shockwave lithotripsy treatment of bilateral common iliac artery, stent grafting of the bilateral common iliac artery with stenting of the left common/external iliac artery. Chief Complaint: PVD s/p abdoiminal and lower extremity angiogram with shockwave lithotripsy treatment of bilateral common iliac artery, stent grafting of the bilateral common iliac artery with stenting of the left common/external iliac artery. PMH: PVD, HTN, HLD, GERD Hospital course: Pt admitted with PVD an d underwent an abdominal and bilateral lower extrermity angiogram, shockwave lithotripsy treatment of bilateral common iliac artery, stent grafting of the bilater al common iliac artery with stenting of the left common/external iliac artery. Pt did well after surgery and was discharged to home in stable condition. Discharge condition: Stable and Improved. Discharge therapy: Medications: As per medication reconcillation sheet. Diet: Cardiac Activity: As tolerated and no heavy lifting for one week. Follow up: Pt to follow up with Dr. Braga two weeks after discharge. Extracted from:Title: Clinical Document Author: Fernando Braga MD Date: 06/30/18 OPERATIVE REPORT Date: June 30, 2018 Surgeon: Fernando Braga MD Preoperative diagnosis: Peripheral vascular disease Postoperative diagnosis: Same Procedure: Abdominal and bilateral lower extremity angiogram, shockwave lithotripsy treatment of bilateral common iliac artery, stent grafting of the bilateral common iliac artery with stenting of the left common/external iliac artery. Indication: Claudication In detail: The patient was taken to the operating r oom and given intravenous sedation. Both groins were prepped and draped in usual sterile manner. Bilateral femoral access was achieved using ultrasound guidance and micropuncture technique and the pat ient was heparinized. A 5 Grenadian sheath were inserted which were later changed to 7 Grenadian. Abdominal bilateral lower extremity angiogram was performed. The re nal arteries and the aorta was patent. The distal aorta has some disease no noncritical. Both iliac arteries and distal aorta were very heavily calcified. The right common iliac artery had about a 90 % stenosis in the lower third. The righ t external iliac artery and the remainder of the circulation was widely patent with three-vessel runoff. On the left side there was near total occlusion of the p roximal left common iliac artery with di ffuse disease and what appears to be an occlusion of the hypogastric artery. The distal external iliac artery was patent so were the rest of the vessels distally with three-vessel runoff. The 7 x 60 s hockwave balloon was used and 180 shocks were delivered to each iliac artery. The angiogram showed a significant improvement with much greater residual lumen how ever there was a slight dissection in th e proximal common iliac artery and fair amount of dissection in the left common iliac artery. The right side was treated with a 8X59 VBX inflated to 10 patricio. An additional short 8 mm was deployed more distally due to what appears to be an ulcerated area that needed to be covered proximal to the takeoff of the hypogastric. The angiogram showed slight residual f illing behind the stent graft however it appears to be a problem. A 7 x 39 VBX stent was deployed on the left. It covered the diseased area however there was still an area of dissection distally and a n 8 x 14 PICC was deployed across the ta keoff of the hypogastric artery which was now patent after the shockwave treatment. He had very good flow distally. Both sheaths were removed and hemostasis was achieved with a minx device and heparin was reversed with p rotamine. Please send a copy of this to Dr. Wyman Plan of Care No Data Provided for This Section Social History Social History Date Source Social History TypeResponse 06/30/2018 [facility] Substance Abuse Use: None. Cessation Education Provided: Yes. Sexual Sexually active: No. Sexually active at age 20 Years. Exercise Exercise duration: 20. Employment/School Status: Retired. Alcohol Current, Type Beer. Frequency: 1-2 time s per week. Started age 20 Years. Stopped age 63 Years. Previous treatment: None. Alcohol use interferes with work or home: No. Drinks more than intended: N o. Others hurt by drinking: No. Ready to change: No. Household alcohol concerns: No. Smoking Status Former smoker; Type: Cigarettes; Previou s treatment: None; Ready to change: Yes; Concerns about tobacco use in household: No; Exposure to Tobacco Smoke None; Cigarette Smoking Last 365 Days No; Reg Smok ing Cessation Counseling Yes; Tobacco us e per day: 0; Number of years: 38; Total pack years: 45; Started at age: 15.0; Stopped at age: 63.0; Other Tobacco Frequency none; entered on: 06/30/18 Social History TypeResponse 06/30/2018 [facility] Rochelle guzman Substance Abuse Use: None. Cessation Education Provided: Yes. Sexual Sexually active: No. Sexually active at age 20 Years. Exercise Exercise duration: 20. Employment/School Status: Retired. Alcohol Current, Type Beer. Frequency: 1-2 time s per week. Started age 20 Years. Stopped age 63 Years. Previous treatment: None. Alcohol use interferes with work or home: No. Drinks more than intended: N o. Others hurt by drinking: No. Ready to change: No. Household alcohol concerns: No. Smoking Status Former smoker; Type: Cigarettes; Ready t o change: Yes; Concerns about tobacco use in household: No; Exposure to Tobacco Smoke None; Cigarette Smoking Last 365 Days No; Reg Smoking Cessation Counseling Y es; Tobacco use per day: 20; Stopped at age: 59; Other Tobacco Frequency Pt. quit in 2016.; 1 entered on: 07/20/18 1quit 1 yr ago Social History TypeResponse 01/21/2016 [facility] Substance Abuse Use: None. Exercise Exercise type: Walking. Alcohol Current, Type Beer. Frequency: 1-2 times per week. Smoking Status Former smoker; Type: Cigarettes; Tobacco use per day: 20; Stopped at age: 59; Exposure to Tobacco Smoke None; Cigarette Smoking Last 365 Days No; Reg Smoking Cessation Counseling No1 1quit 1 yr ago Family History No Data Provided for This Section Advance Directives No Data Provided for This Section Functional Status No Data Provided for This Section
--- OUTSIDE RECORDS SUMMARY | 2019-11-19 09:12 | XMS REPORT | Continuity of Care Document ---
:1955 Author Organization [facility] t Address [address] [place] [address] Care Team Providers Name Role Phone OMI Attending Clinician Unavailable [facility] Attending Clinician Unavailable Milagro Joshi Attending Clinician Omi Attending Clinician Milagro Ko Attending Clinician Omi Admitting Clinician Problems Condition Condition Condition Status Onset Resolution Last Treating Co mments Source Name Details Category Date Date Treatment Clinician Date N28.81, Diagnosis Active 2018-07-16 Me moria Z98.890 4-03 15:58:00 l N28.81, 00:00: Ganesh Z98.890 00 Active 07/14/2018 [place] UNK Diagnosis Active 2018-06-24 Mem oria 3-07 13:28:00 l UNK 00:00: [place] 00 Active 06/17/2018 [place] I73.9 Diagnosis Active 2018-06-30 Mem oria 3-07 05:17:00 l I73.9 00:00: [place] 00 Active 06/17/2018 [place] PERIPHERAL Diagnosis Active 2018-07-01 Memoria VASCULAR 3-07 11:03:00 l DISEASE 00:00: [place] PERIPHERAL 00 VASCULAR DISEASE Active 06/17/2018 [place] CTA AORTA Diagnosis Active 2018-06-15 Memoria W/FEMORAL 06-09 07:00:00 l FUNOFF DX: CTA 00:00: Joseluis n I70.0=AT AORTA 00 W/FEMORAL FUNOFF DX: I70.0=AT Active 06/09/2018 [facility] SPONDYLOSI Diagnosis Active 2015-042016-09-16 Memoria S 0-06 22:37:00 l 00:00: Ganesh SPONDYLOSI 00 S Active 01/17/2016 [facility] Ganesh PVD PVD Problem Active Univers (periphera (periphera it y of l vascular l vascular [place] disease) disease) Physic i ans Bilateral Bilateral Problem Active Uni vers carotid carotid ity of artery artery [place] disease disease Physici ans Aortic Aortic Problem Active Univers atheroscle atheroscle it y of rosis rosis [place] Physici ans Enlarged Enlarged Problem Active Unive rs kidney kidney ity of [place] Physici ans S/P S/P Problem Active Univers angiogram angiogram ity of of of [place] extremity extremity Phys ici ans Degenerati Problem Active 2018-10-21 M emoria on of 21:53:14 l lumbar Ganesh interverte Degenerati bral disc on of (disorder) lumbar interverte bral disc (disorder) Active Problem 10/21/2018 [facility] Gastroesop Problem Active 2018-10-21 M emoria hageal 21:53:14 l reflux [place] disease Gastroesop (disorder) hageal reflux disease (disorder) Active Problem 10/21/2018 [facility] Herniation Problem Active 2018-10-21 M emoria of nucleus 21:53:14 l pulposus Ganesh (disorder) Herniation of nucleus pulposus (disorder) Active [facility]/21[facility] Hyperlipid Problem Active 2018-10-21 M emoria emia 21:53:14 l (disorder) Joseluis n Hyperlipid emia (disorder) Active Problem 10/21/2018 [facility] Hypertensi Problem Active 2018-10-21 M emoria ve 21:53:14 l disorder, Ganesh systemic Hypertensi arterial ve (disorder) disorder, systemic arterial (disorder) Active Problem 10/21/2018 [facility] Paresthesi Problem Active 2018-10-21 M emoria a of hand 21:53:14 l (finding) Ganesh Paresthesi a of hand (finding) Active Problem 10/21/2018 [facility] Spondylosi Problem Active 2018-10-21 M emoria s 21:53:14 l (disorder) Joseluis n Spondylosi s (disorder) Active Problem 10/21/2018 [facility] PERIPHERAL Diagnosis Active 2018-07-01 Memoria VASCULAR 11:03:00 l DISEASE, [place] UNSPECIFIE PERIPHERAL D VASCULAR DISEASE, UNSPECIFIE D Active [facility] Allergies, Adverse Reactions, Alerts Allergy Allergy Status Severity Reaction(s) Onset Inactive Treating Comm ents Source Name Type Date Date Clinician No Known No Known Active Memori a Medicati Medicati l on on Ganesh Allergie Allergie s s Social History Social Habit Start Date Stop Date Quantity Comments Source Social History 2016-01-21 2016-01-21 [facility] H ermann 15:23:48 15:23:48 Smoking Status Start Date Stop Date Source Ex-smoker (finding) [place] [facility] Physicians Medications Ordered Filled Start Stop Current Ordering Indication Dosage Frequency Signature Comments Components Source Medication Medication Date Date Medication? Clinician (SIG) Name Name Omnipaque Yes Notes: Memori a 350 4-05 (same l injectable 22:00: as:Omnipaq H ermann solution 00 ue 350). WASTE: F/P - Black; E - Municipal Trash Bin clopidogrel Yes 75 mg = 1 M emoria 75 mg oral 3-21 tab, PO, l tablet 14:40: Daily, # [place] 00 90 tab, 3 Refill(s) Aspirin 81 Yes 81 mg = 1 Me moria MG Enteric 3-21 tab, PO, l Coated 14:40: Daily, # Ganesh Tablet 00 90 tab, 3 Refill(s) Aspirin 81 No 81 mg = 1 Me moria MG Enteric 3-21 tab, PO, l Coated 14:39: Daily, 0 [place] Tablet 00 Refill(s) clopidogrel No 75 mg = 1 M emoria 75 mg oral 3-21 tab, PO, l tablet 14:39: Daily, 0 Ganesh 00 Refill(s) Aspirin No Notes: Do Memor ia -21 not crush l 14:00: or chew. [place] 00 (Same As: Ecotrin) Cozaar No Notes: Memoria 3-21 (Same as: l 14:00: Cozaar) Ganesh 00 Hydrochloro No 1 tab, Al piter thiazide 25 3-21 Route: PO, l MG / 14:00: Drug Form: Ganesh Losartan 00 TAB, Potassium Dosing 100 MG Oral Weight Tablet 88.182, kg, Daily, Start date: 07/01/18 9:00:00 CDT, Duration: 30 day, Stop date: 07/30/18 9:00:00 CDT Amlodipine 2019-0 No Notes: Memor ia 3-21 (Same as: l 14:00: Norvasc) hydrochloro 2018-0 No Notes: Al piter thiazide 25 3-21 (Same as: l mg oral 14:00: Hydrodiuri Herm quinn tablet 00 l) With food. Plavix No Notes: Memoria 3-21 (Same As: l 14:00: Plavix) Lipitor 2018-0 No Notes: Memoria 3-21 (Same As: l 02:00: Lipitor) Oxycodone 2019-0 No 5 mg, Memoria Hydrochlori 3-20 Route: PO, l de 5 MG 17:44: Drug form: Herm quinn Oral Tablet 00 TAB, ONCE, Dosing Weight 88.182, kg, PRN Pain Score 4-6, Start date: 06/30/18 12:44:00 CDT Ondansetron 2018-0 No 4 mg, Memor ia 3-20 Route: l 16:43: IVP, ONCE, Dosing Weight 88.182, kg, PRN Nausea & Vomiting, Start date: 06/30/18 11:43:00 CDT Naloxone 2019-0 No 0.4 mg, Memori a 3-20 Route: l 16:43: IVP, Q2MIN, Dosing Weight 88.182, kg, PRN Narcotic Reversal, Start date: 06/30/18 11:43:00 CDT, Duration: 8 doses or times, Stop date: Limited # of times Flumazenil 2019-0 No 0.2 mg, Al piter 3-20 Route: l 16:43: IVP, PRN, Dosing Weight 88.182, kg, PRN Benzodiaze pine Reversal, Initial dose, Start date: 06/30/18 11:43:00 CDT, Duration: 30 day, Stop date: 07/30/18 11:42:00 CDT Hydralazine 2019-0 No 10 mg, Al piter 3-20 Route: l 16:43: IVP, [place] 00 Q20Min, Dosing Weight 88.182, kg, PRN Elevated BP, Start date: 06/30/18 11:43:00 CDT, Duration: 2 doses or times, Stop date: Limited # of times Acetaminoph No Notes: Al piter en 325 MG / 3-20 (Same as: l Hydrocodone 15:55: [place] Ольга nn Bitartrate 00 325/5) Do 5 MG Oral not exceed Tablet 4gm/day of [[place] acetaminop 5/325] hen. Acetaminoph No Notes: Do M emoria en 3-20 not exceed l 15:54: 4 gm/day. Ganesh 00 (Same as: Tylenol) Sodium No 1,000 mL, Memori a Chloride 3-20 Rate: 75 l 0.9% IV 15:54: ml/hr, Ganesh 1,000 mL 00 Infuse over: 13.3 hr, Route: IV, Dosing Weight 88.182 kg, Total Volume: 1,000, Start date: 06/30/18 10:54:00 CDT, Duration: 30 day, Stop date: 07/30/18 10:53:00 CDT, 2.06, m2 Morphine No 2 mg, 1 Memori a 3-20 mL, Route: l 15:54: IVP, Drug form: SOLN, Q2H, Dosing Weight 88.182, kg, PRN Pain Score 7-10, Start date: 06/30/18 10:54:00 CDT, Duration: 30 day, Stop date: 07/30/18 10:53:00 CDT Hydralazine No Notes: Al piter 3-20 (Same as: l 15:54: Apresoline ) Push over 5 minutes Aspirin No Notes: Do Memor ia 3-20 not crush l 15:48: or chew. (Same As: Ecotrin) Plavix No Notes: ( Memoria 3-20 Same as: l 15:48: Plavix) hydrALAZINE No Route: IV, Memoria (ANES) 3-20 Drug form: l 15:47: INJ, ONCE, Stop date: 06/30/18 10:47:00 CDT protamine No Route: IV, Me moria (ANES) 10 3-20 Drug form: l mg 15:38: INJ, Start date: 06/30/18 10:38:00 CDT, Stop date: 06/30/18 11:38:00 CDT ondansetron No Route: IV, Memoria (ANES) 3-20 Drug form: l 15:01: INJ, ONCE, Stop date: 06/30/18 10:01:00 CDT heparin No Route: IV, Al piter (ANES) 3-20 Drug form: l 14:16: INJ, ONCE, Stop date: 06/30/18 9:16:00 CDT metoclopram No Route: IV, Memoria seth (ANES) 3-20 Drug form: l 13:36: INJ, ONCE, Stop date: 06/30/18 8:36:00 CDT midazolam 2018-0 No Route: IV, Me moria (ANES) 3-20 Drug form: l 13:36: SOLN, 00 ONCE, Stop date: 06/30/18 8:36:00 CDT fentaNYL No Route: IV, Mem oria (ANES) 3-20 Drug form: l 13:36: INJ, ONCE, Stop date: 06/30/18 8:36:00 CDT Lactated No Route: IV, Mem oria Ringers 3-20 Total l Injection 12:47: Volume: Ольга nn IV (ANES) 00 1,000, 1000 mL Start date: 06/30/18 7:47:00 CDT, Stop date: 06/30/18 8:47:00 CDT Calcium 2018-0 No 1,000 mL, Memor ia Chloride 3-20 Rate: 25 l 0.0014 12:34: ml/hr, Ganesh MEQ/ML / 00 Infuse Potassium over: 40 Chloride hr, Route: 0.004 IV, Dosing MEQ/ML / Weight Sodium 88.182 kg, Chloride Total 0.103 Volume: MEQ/ML / 1,000, Sodium Start Lactate date: 0.028 06/30/18 MEQ/ML 7:34:00 Injectable CDT, Solution Duration: 30 day, Stop date: 07/30/18 7:33:00 CDT, 2.06, m2 amLODIPine Yes 5 mg = 1 Mem oria 5 mg oral 3-18 tab, PO, l tablet 18:20: Daily, 0 [place] 00 Refill(s) Omnipaque Yes Notes: Memori a 350 3-05 (same l injectable 15:00: as:Omnipaq H ermann solution 00 ue 350). WASTE: F/P - Black; E - Municipal Trash Bin Insulin, 2015-04 No Notes: Memoria Aspart, 0-10 Roll in l Human 20:02: palms of Ganesh 00 hands gently; Do not shake vigorously . (Same as: NovoLOG) "single patient use only" WASTE: F/P - Black; E - Municipal Trash Bin Stable for 28 days at room temperatur e. Expires in days from ____Date Acetaminoph 2015-04 No Notes: Do M emoria en 325 MG / 0-10 not exceed l Hydrocodone 20:02: 4gm/day of Ganesh Bitartrate 00 acetaminop 10 MG Oral hen. Tablet (Same as: [[place] 10/325] 325/10) Acetaminoph 2015-04 No Notes: Al piter en 325 MG / 0-10 (Same as: l Hydrocodone 20:02: [place] Ольга nn Bitartrate 00 325/5) Do 5 MG Oral not exceed Tablet 4gm/day of [[place] acetaminop 5/325] hen. Morphine 2015-04 No Notes: Memoria 0-10 (Same l 20:02: as:MORPhin [place] 00 e Sulfate) Acetaminoph 2015-04 No Notes: Max Memoria en 0-10 acetaminop l 20:02: hen 4000 Ganesh 00 mg/day (4 gm/day). (Same as: Tylenol Extra Strength) Hydralazine 2015-04 No Notes: Al piter 0-10 (Same as: l 20:02: Apresoline Ganesh 00 ) Push over 5 minutes Labetalol 2015-04 No 10 mg, 2 Al piter 0-10 mL, Route: l 20:02: IVP, Drug form: INJ, Q5Min, Dosing Weight 88.636, kg, PRN Elevated BP, Start date: 01/21/16 15:02:00 CDT, Duration: 5 doses or times, Stop date: Limited # of times Ondansetron 2015-04 No Notes: Al piter 0-10 (Same as: l 20:02: Zofran) MEDICATION WASTE Product Size: 4 mg Product Wasted: ___ mg Flumazenil 2015-04 No Notes: Memor ia 0-10 (Same as: l 20:02: Romazicon) Naloxone 2015-04 No Notes: Memoria 0-10 Same as l 20:02: Narcan Hydromorpho 2015-04 No Notes: Al piter ne 0-10 Same as l 20:02: Dilaudid Acetaminoph 2015-04 No Notes: Do M emoria en 325 MG / 0-10 not exceed l Hydrocodone 19:45: 4gm/day of Ganesh Bitartrate 00 acetaminop 10 MG Oral hen. Tablet (Same as: [place] 325/10) Morphine 2015-04 No Notes: Memoria 0-10 (Same l 19:45: as:MORPhin e Sulfate) Ancef 2015-04 Yes Notes: Memoria 0-10 Same as l 15:42: Ancef Ganesh 00 Lactated 2015-04 No 1,000 mL, Al piter Ringers 0-10 Rate: 40 l 1,000 mL 15:42: ml/hr, Infuse over: 25 hr, Route: IV, Dosing Weight 88.636 kg, Total Volume: 1,000, Start date: 01/21/16 10:42:00 CDT, Duration: 30 day, Stop date: 02/20/16 10:41:00 RE EXAMINER Vitamin B12 2015-04 Yes See Memori a 0-06 Instructio l 22:26: ns, 0 Ganesh 00 Refill(s) multivitami 2015-04 Yes See Memori a n 0-06 Instructio l 22:25: ns, Daily, Ganesh 00 0 Refill(s) Hydrochloro 2015-04 Yes 1 tab, PO, Memoria thiazide 25 0-06 Daily, l MG / 22:24: HOLD AM Ganesh Losartan 00 DOS, # 90 Potassium tab, 0 100 MG Oral Refill(s) Tablet atorvastati 2015-04 Yes 10 mg = 1 M emoria n 10 MG 0-06 tab, PO, l Oral Tablet 22:24: Bedtime, # Ganesh [Lipitor] 00 90 tab, 0 Refill(s) Lipitor 10 Lipitor 10 Yes Uni vers MG Oral MG Oral ity of Tablet Tablet [place] Physici ans Losartan Losartan Yes Univers Potassium Potassium ity o f 100 MG Oral 100 MG Oral [place] Tablet Tablet Physici ans hydroCHLORO hydroCHLORO Yes U nivers thiazide 25 thiazide 25 i ty of MG Oral MG Oral [place] Tablet Tablet Physici ans Norvasc 5 Norvasc 5 Yes Unive rs MG Oral MG Oral ity of Tablet Tablet [place] Physici ans Vital Signs Vital Name Observation Time Observation Value Comments Source Systolic blood 2019-06-20 08:58:00 151 mm[Hg] Univer sity of pressure [place] Physician s Diastolic blood 2019-06-20 08:58:00 71 mm[Hg] Unive rsity of pressure [place] Physician s Body height 2019-06-20 08:58:00 68 [in_us] Universi ty [facility] Physician s Weight 2019-06-20 08:58:00 194 [lb_av] Universi ty [facility] Physician s Body mass index 2019-06-20 08:58:00 29.5 kg/m2 Unive rsity of (BMI) [Ratio] [facility] ns BP Systolic 2018-10-25 09:17:00 148 mm[Hg] Universi ty [facility] Physician s BP Diastolic 2018-10-25 09:17:00 80 mm[Hg] Universi ty [facility] Physician s Height 2018-10-25 09:17:00 68 [in_us] Universi ty [facility] Physician s Weight 2018-10-25 09:17:00 195 [lb_av] Universi ty [facility] Physician s Body Mass Index 2018-10-25 09:17:00 29.65 kg/m2 Unive rsity of Calculated [place] Physician s BP Systolic 2018-07-19 15:10:00 164 mm[Hg] Universi ty of [place] Physician s BP Diastolic 2018-07-19 15:10:00 77 mm[Hg] [facility] ty [facility] [place] Physician s Height 2018-07-19 15:10:00 68 [in_us] [facility] [place] Physician s Weight 2018-07-19 15:10:00 190 [lb_av] Universi ty of [place] Physician s Body Mass Index 2018-07-19 15:10:00 28.89 kg/m2 [facility] Calculated [place] Physician s Respitory Rate 2018-07-01 14:00:00 Memori al [place] Systolic (mm Hg) 2018-07-01 14:00:00 Al rial Ganesh Diastolic (mm Hg) 2018-07-01 14:00:00 Mem orial Ganesh Systolic (mm Hg) 2018-07-01 13:00:00 Al rial [place] Diastolic (mm Hg) 2018-07-01 13:00:00 Mem orial [place] Respitory Rate 2018-07-01 13:00:00 Memori al Ganesh Systolic (mm Hg) 2018-07-01 12:00:00 Al rial Ganesh Diastolic (mm Hg) 2018-07-01 12:00:00 Mem orial Ganesh Respitory Rate 2018-07-01 12:00:00 Memori al Ganesh Height 2018-06-30 21:22:00 170 cm [facility] [place] Weight 2018-06-30 21:22:00 [facility] Ganesh BMI Calculated 2018-06-30 21:22:00 Memori al Ganesh Heart Rate 2018-06-28 18:19:00 [facility] [place] Temperature Oral (F) 2018-06-28 18:19:00 97.8 F [facility] [place] Weight 2018-06-28 18:19:00 [facility] [place] BMI Calculated 2018-06-28 18:19:00 Memori al [place] Height 2018-06-28 18:19:00 170.18 cm [facility] [place] BP Systolic 2018-05-31 11:54:00 156 mm[Hg] [facility] ty [facility] [place] Physician s BP Diastolic 2018-05-31 11:54:00 77 mm[Hg] Univers[facility] ty [facility] [place] Physician s Height 2018-05-31 11:54:00 68 [in_us] Univers[facility] ty [facility] [place] Physician s Weight 2018-05-31 11:54:00 194 [lb_av] Universi ty [facility] [place] Physician s Body Mass Index 2018-05-31 11:54:00 29.5 kg/m2 [facility] rs[facility] Calculated [place] Physician s Systolic (mm Hg) 2016-01-21 21:00:00 Al rial [place] Diastolic (mm Hg) 2016-01-21 21:00:00 Mem orial [place] Respitory Rate 2016-01-21 21:00:00 Memori al [place] Systolic (mm Hg) 2016-01-21 20:45:00 Al rial Ganesh Diastolic (mm Hg) 2016-01-21 20:45:00 Mem orial [place] Respitory Rate 2016-01-21 20:45:00 Memori al [place] Systolic (mm Hg) 2016-01-21 20:30:00 Al rial Ganesh Diastolic (mm Hg) 2016-01-21 20:30:00 Mem orial [place] Respitory Rate 2016-01-21 20:30:00 Memori al [place] Heart Rate 2016-01-21 15:18:00 [facility] Ganesh Temperature Oral (F) 2016-01-21 15:18:00 98 F [facility] Ganesh Weight 2016-01-17 22:04:00 [facility] [place] BMI Calculated 2016-01-17 22:04:00 Memori al Ganesh Height 2016-01-17 22:04:00 172.72 cm [facility] Ganesh Procedures Procedure Date / Time Performed Performing Clinician Bear sebastian CVRAD - Abdominal 2019-06-20 00:00:00 [facility] Duplex Comp - [id number] Physicians CVRAD - Bilateral 2019-06-20 00:00:00 [facility] Lower Arterial Duplex Physicians - [id number] CVRAD - Lower 2019-06-20 00:00:00 [facility] Arterial Seg. Physicians Pressures - [id number] CVRAD - Abdominal 2018-10-25 00:00:00 [facility] Duplex Comp - [id number] Physicians CVRAD - Bilateral 2018-10-25 00:00:00 [facility] Lower Arterial Duplex Physicians - [id number] CVRAD - Lower 2018-10-25 00:00:00 [place] [facility] Arterial Seg. Physicians Pressures - [id number] CVRAD - Abdominal 2018-07-14 00:00:00 [facility] Duplex Comp - [id number] Physicians CVRAD - Bilateral 2018-07-14 00:00:00 [facility] Lower Arterial Duplex Physicians - [id number] CVRAD - Lower 2018-07-14 00:00:00 [facility] [place] Arterial Seg. Physicians Pressures - [id number] CTA Abdomen/Pelvis 2018-07-14 00:00:00 [facility] [id number] Physicians CVRAD - Bilateral 2018-06-09 00:00:00 [facility] Carotid Duplex - Physicians [id number] CVRAD - Abdominal 2018-06-09 00:00:00 [facility] Duplex Comp - [id number] Physicians CVRAD - Bilateral 2018-06-09 00:00:00 [facility] Lower Arterial Duplex Physicians - [id number] CVRAD - Lower 2018-06-09 00:00:00 [place] [facility] Arterial Seg. Physicians Pressures - [id number] CTA Aorta with 2018-06-09 00:00:00 [place] [facility] femoral runoff [id number] Physicians Colonoscopy<sup>1</rao [facility] ermann p> Procedure [facility] Encounters Start End Encounter Admission Attending Care Care Encounter Source Date/Time Date/Time Type Type Clinicians Facility Department ID 2019-06-20 2019-06-20 AppointEMA [facility] [id number] Univers 08:45:00 08:45:00 t; FERNANDO BRAGA M.D. cic & Marianna Ch M.D. Surgery - Physic i [facility] ans 2019-06-20 2019-06-20 [facility] [id number] Univers 07:00:00 07:00:00 t; DR OMI rdz & jay o Marianna Cuenca DR Surgery - Physi ci [facility] ans 2018-10-25 2018-10-25 Appointmen EMA BRAG[facility] [id number] Univers 09:00:00 09:00:00 t; FERNANDO BRAGA M.D. cic & Marianna Ch M.D. Surgery - Physic i [facility] ans 2018-10-25 2018-10-[facility] [id number] Univers 07:30:00 07:30:00 t; DR OMI bell o f [facility] Vascular Vahid s DR BRAGA Surgery - Physi ci [facility] 2018-10-19 2018-10-19 Outpatient [place] [facility] [id number] 13:40:00 13:40:00 [place] 2018-07-19 2018-07-19 [facility] [id number] Univers 15:30:00 15:30:00 t; FERNANDO BRAGA M.D. cic and Marianna Ch M.D. Surgery - Physic i Dr. Fernando Braga 2018-07-16 2018-07-16 Outpatient Omi MHSE MHSE [id number] 15:48:00 23:59:00 Fernando 2018-07-16 2018-07-16 Outpatient MHSE [id number] 15:48:00 15:48:00 [facility] 2018-07-14 2018-07-14 [facility] [id number] [facility] 08:00:00 08:00:00 t; DR OMI rdz and jay [place] [facility] BRAGA Surgery - Physi ci Dr. Fernando Braga 2018-06-30 2018-07-01 Outpatient MHSE MHSE [id number] 10:54:00 10:06:00 2018-06-15 2018-06-15 Outpatient Omi, MHSE MHSE [id number] 06:52:00 23:59:00 Fernando 2018-06-09 2018-06-09 [facility] [id number] [facility] 06:00:00 06:00:00 t; DR OMI rdz and jay [facility] [place] BRAGA Surgery - Physi ci Dr. Fernando Braga 2018-05-31 2018-05-31 [facility] [id number] Univers 11:15:00 11:15:00 t; FERNANDO BRAGA M.D. cic and ity of [facility], Vascular [place] M.D. Surgery - Physic i Dr. Fernando Braga 2016-01-21 2016-01-21 Outpatient Omari Ko [facility] [id number] 09:43:00 23:59:00 S 00 Results Test Test Test Results Result Source Description Time Comments Comments CHEM PANEL [facility] Ganesh 20:05:00 CHEM PANEL 0.8 [facility] Ganesh 20:05:00 CTA 2018-07- Patient Name: [facility]/Pelvis 05 BUSBYDOB: 1955; Age: Michael [address] 16:01:00 63 years y/o MaleMR: Tevin antoine [id number]* CT ANGIOGRAPHY OF THE ABDOMEN & PELVIS, (CT aortography of the abdominalaorta and pelvic vessels)HISTORY: Enlargement of kidney, history of lithotripsy, status post angiogramof extremity.Prior imaging studies reviewed: CT angiogram of 06/15/2018.Technique: High resolution (2.0 mm) helical CT images were obtained from thedomes of the diaphragm through the pelvis to the pubic symphysis during thedynamic administration of nonionic iodinated contrast for maximal arterialopacification (CT angiography technique). Sagittal and coronal MIPreconstructions (obtained by postprocessing on an independent workstation) werealso provided.CT imaging performed at this location utilizes radiation dose optimizationtechniques which include one or more of the following:-Automated exposure control.-Adjustment of the mA and/or kV according to patient size.-Use of iterative reconstruction technique.CT radiation dose DLP: 1765 mGy-cmFINDINGS: (Vascular)* Abdominal aorta and iliac arteries:1. Very extensive diffuse atherosclerotic changes involving the abdominal aortaand iliac arteries. In the lower abdominal aorta and there are irregularplaques and a small amount of luminal thrombus. There is no evidence ofabdominal aortic aneurysm or dissection.2. Since the prior study, bilateral common iliac artery stents have beenplaced. The stents which extend from the origins of the common iliac arteriesinto the distal common iliac arteries are patent and appear to be in goodposition.3. There is extensive eccentric calcified plaque involving the left externalartery and moderate plaque involving the left external iliac artery. Thereappear to be mild areas of narrowing. There does not appear to be ahemodynamically significant stenosis involving either external iliac artery.Therefore, it is felt to be adequate inflow into both hypogastric arteriesbilaterally.4. There is severe diffuse disease involving the hypogastric arteriesbilaterally. There are severe stenoses at the origins of both hypogastricarteries.5. The superior mesenteric artery, celiac axis, and inferior mesenteric arteryare patent.6. There are 3 renal arteries bilaterally. There are bilateral main renalarteries and bilateral upper and lower pole accessory arteries. The renalarteries appear to be patent.FINDINGS: (Nonvascular)1. Since the prior study, there has been development of an approximately 5.8 x5.6 x 2.3 cm anterior, inferior right renal lateral subcapsular fluidcollection. The thickness measures 2.3 cm. The collection measuresapproximately 20 Hounsfield units. This was not present on the prior study.This may represent a liquefied subacute subcapsular hematoma. No hemorrhage ordebris is seen within this collection.2. No other new findings are seen within the abdomen or pelvis.3. Mild fatty change involving the liver. There is an 18 mm cyst anteriorly inthe lower portion of the right hepatic lobe. There is a 6 mm cyst involving theleft hepatic lobe. No other focal lesions are seen involving the kidneys onthis limited noncontrast study.4. The gallbladder is visualized and grossly unremarkable. There is no evidenceof biliary ductal dilatation.5. The spleen, pancreas, and the adrenal glands are normal in appearance.6. No intra-abdominal mass, adenopathy, ascites, or other fluid collection.7. The prostate gland is normal in size measuring 4.3 x 3.1 cm incross-section.8. The gastrointestinal structures are unremarkable. There is no evidence ofobstruction or ileus. A normal appendix is visualized. Evaluation of thegastrointestinal structures is limited due to lack of oral contrast.9. Small right inguinal hernia measuring 2.7 x 2.3 cm in cross-section. Thereis no herniation of bowel.10. The heart is normal in size. There is no pericardial effusion.11. Mild coronary artery calcifications.12. The regional skeleton is unremarkable.SL: [id number] by: Fili Mendoza MDDictated Date/time: 07/18/18 08:41Electronically Signed by: Fili Mendoza MD 07/18/1910:17FINAL REPORT CHEM PANEL [place] [address] [place] 11:34:00 CHEM PANEL 8.2 [place] [address] [place] 11:34:00 CHEM PANEL [place] [address] [place] 11:34:00 CHEM PANEL [place] [address] [place] 11:34:00 CHEM PANEL 3.7 [place] [address] [place] 11:34:00 CHEM PANEL [facility] [place] 11:34:00 CHEM PANEL [facility] 11:34:00 CHEM PANEL .91 [facility] 11:34:00 CHEM PANEL [facility] 11:34:00 CHEM PANEL 5.7 [facility] 11:34:00 HEMATOLOGY 2018-06-11.4 [facility] 11:34:00 HEMATOLOGY 4.6 [facility] [place] 11:34:00 HEMATOLOGY 0.1 [facility] [place] 11:34:00 HEMATOLOGY 0.8 [facility] [place] 11:34:00 HEMATOLOGY 0.7 [facility] 11:34:00 HEMATOLOGY 1.7 [facility] [place] 11:34:00 HEMATOLOGY 11.7 [facility] 11:34:00 HEMATOLOGY 19.9 [facility] [place] 11:34:00 HEMATOLOGY 66.0 [facility] 11:34:00 HEMATOLOGY 2018-06-14.41 [facility] [place] 11:34:00 HEMATOLOGY 39.4 [facility] 11:34:00 HEMATOLOGY 13.4 [facility] [place] 11:34:00 HEMATOLOGY .4 [facility] [place] 11:34:00 HEMATOLOGY 2018-07-01 11:34:00 Test Item Value Reference Range Interpretation Comme nts MCH (test code = MCH) 30.4 pg 27.0-31.0 [facility] WfaymznQHQRUXMNQP0596-82-37 11:34:007.8[facility]MATOLOGY 2018-07-01 11:34:0013.1[facility] LuwjzdiSAHKETSKHD2430-55-71 11:34:0034.0[facility] IbajweiZNZCBSFWCQ3563-89-16 11:34:77808Ddyyjerz HebjgaqXZLRZFYWIL8602-69-70 11:34:007.0[facility]annBLOOD BANK ATBGVQI3664-56-16 18:34:00Negative (06/28/18 1:34 PM)[facility] HugehulTXEUBQBFKRNZ9330-56-83 18:34:005.3[facility] WtpzxgvXOZOUPWTVSXU3061-23-07 18:34:0090[facility] ZqouzdcEUSLBSHJTUWQ2577-65-96 18:34:20303Bhsjlgmm LvrvmjkOOMLXFKCNGPD1199-28-68 18:34:0033[facility] [place] ALPJJJNPSFOG9754-53-85 18:34:009.6[facility] MhvoixoIKTQVWZPRUHJ8215-57-67 18:34:0011[facility] IwmysdeGRFNRMYGHQSX0079-12-84 18:34:0086[facility] [place] ZRJDXGQHFTBO1708-20-71 18:34:004.3[facility] XfefqgyMWVEZAEDRMMU1126-71-66 18:34:96517Hzzsxkfy QyjopnlFHPQVXKWEYYW9481-80-18 18:34:000.89[facility] UUCFUBXSLA0343-40-42 18:34:007.9[facility] EpsszhoZFJZGKAOAQ3663-54-93 18:34:00 33.7[facility] KunyogvYGTGONELMR9398-98-47 18:34:45520Oypftqil HermannHEMATOLOGY 2018-06-28 18:34:0013.3[facility] ArfiavvDYXWQBZIWU9558-95-29 18:34:00 Test Item Value Reference Range Interpretation Comments MCH (test code = MCH) 30.3 pg 27.0-31.0 [facility] SknnuebXFVVYTOUUK8582-68-84 18:34:0046.0[facility]annHEMATOLOGY 2018-06-28 18:34:0015.5[facility] MwmxjacFQOEUOQIIV0184-27-57 18:34:0089.8[facility] VscvzwuPCNDAZSQWS0955-77-11 18:34:005.13[facility] SfvmznfDPCRUPCNOP7858-89-25 18:34:007.4[facility] XjdbmuvESUQOOTPWT1727-73-34 18:34:00 Test Item Value Reference Range Interpretation Comments INR (test code = INR) 0.91 1 0.85-1.17 [facility] AsicelkBXVHJHRMKM2627-29-14 18:34:00 Test Item Value Reference Range Interpretation Comments PT (test code = PT) 12.1 s 12.0-14.7 [facility] XvleeowZKNLRHDVSN8315-78-55 18:34:00 Test Item Value Reference Range Interpretation Comments PTT (test code = PTT) 30.6 s 22.9-35.8 [facility] VbcxaadNXDSVRYBOH0604-68-67 18:34:000.1[facility]annHEMATOLOGY 2018-06-28 18:34:009.9[facility] FibdhheKPIOZKXAPV5558-33-77 18:34:000.7[facility] PcfkvjdNFAJXWRQVE4985-14-14 18:34:000.9[facility] GqrnxusLUAOFMFSOG6635-93-42 18:34:004.6[facility] SopgbqnKJSEVRJAXJ1468-51-31 18:34:000.6[facility] [place] PPHEOKCATK8486-55-75 18:34:002.0[facility] KhkdtraPZWGQIXXXQ2319-01-64 18:34:00 26.9[facility] CqqqfqeOOGPFDJLKL7801-46-30 18:34:0061.7[facility]annURINE AND BXXEE8015-21-92 18:34:00None Seen (06/28/18 1:34 PM)[facility] GOKQB1695-21-98 18:34:00<1[facility] JPNRB7604-57-73 18:34:00 <1[facility] BTJFV3743-31-34 18:34:00Negative (06/28/18 1:34 PM)[facility] HWGOY1747-37-73 18:34:00Negative (06/28/18 1:34 PM) [facility] GVJKO8843-72-25 18:34:00Negative (06/28/18 1:34 PM) [facility] NEECM0519-61-59 18:34:00Negative *NA*(06/28/18 1:34 PM) [facility] AKKIR9792-25-73 18:34:00Negative *NA*(06/28/18 1:34 PM) [facility] HUXBD9006-24-50 18:34:00Negative *NA*(06/28/18 1:34 PM) [facility] SHTBB1485-59-37 18:34:00Negative (06/28/18 1:34 PM) [facility] TressaannARCHIE AND ITVKH4753-20-21 18:34:00 Test Item Value Reference Range Interpretation Comments UA pH (test code = UA pH) 5.0 1 5.0-8.0 [facility] TressaannARCHIE AND [id number] 18:34:00 Test Item Value Reference Range Interpretation Comments UA Spec Grav (test code = UA Spec 1.006 1 Grav) [facility] [id number] 18:34:00Clear (06/28/18 1:34 PM) [facility]annXRAY Chest 2 views [id number] 13:21:00Clinical Indication: 63 years Male with Coughing - preopComparison: NoneFINDINGS:The PA and lateral c hest radiographs shows normal lung volumes.No interstitial or airspace opacities.No pleural effusion.No pneumothorax.The cardiac silhouette is normal.Mild prominence of the left hilar region due to prominent pulmonaryvasculature.The trachea is midline.There are no acute osseous abnormalities noted.IMPRESSION:No acute cardiopulmonary abnormality.SL: [id number]--Myhw by: Edwardo Oliveira MDDictated Date/time: 06/28/18 17:12Electronically Signed by: Edwarod Oliveira MD 7:12FINAL REPORTUnSanpete Valley Hospital PhysiciansCHEM [id number] 14:03:0094[facility] HermannCHEM BYROX2056-91-28 14:03:000.8[facility] HermannCTA Aorta with femoral runoff [id number] 07:34:00Clinical Indication: - I70.0 Atherosclerosis of aorta, I73.9 Peripheralvascular disease, unspecified; preoperative evaluation for arterial blockage inthe legs.Comparison: NoneTECHNIQUE: CT angiography of the abdomen, pelvis, and bilateral lowerextremities was performed after administration of iodinated contrast. Coronaland sagittal reconstructions were obtained. 3-D reconstruction imaging, MIPwith postprocessing was also performed of the arterial vessels.CT imaging performed at this location utilizes radiation dose optimizationtechniques which include one or more of the following:-Automated exposure control-Adjustment of the mA and/or kV according to patient size-Use of iterative reconstruction techniqueCT Radiation Dose DLP 609 mGy-cmFINDINGS: ARTERIAL EVALUATION:Severe multifocal atherosclerosis throughout the abdominal aorta withoutsignificant stenosis or aneurysm. No dissection.The celiac, superior mesenteric and inferior mesenteric arteries appearunremarkable. The visceral arterial branches appear unremarkable.The renal arteries are patent.RIGHT LOWER EXTREMITY:Aortoiliac inflow: Multifocal atherosclerosis in the right common iliac artery.There is a focal moderate to severe stenosisof the distal right common iliacartery (approximately 75%).Femoral-popliteal outflow: The common femoral, superficial femoral, andpopliteal arteries are patent. The profunda femoris artery is also patent.Infrapopliteal runoff: The anterior tibial, posterior tibial, and peronealarteries are patent. Thedosalis pedis artery is patent.LEFT LOWER EXTREMITY:Aortoiliac inflow: The common iliac and externaliliac arteries are patent.Severe multifocal stenosis of the left common iliac artery (greater than 90%).Femoral-popliteal outflow: The common femoral, superficial femoral, andpopliteal arteries are patent. The profunda femoris artery is also patent.Infrapopliteal runoff: The anterior tibial, posteriortibial, and peronealarteries are patent. The dosalis pedis artery is patent.VISUALIZED LUNG BASES: Unremarkable.ABDOMINAL SOLID ORGANS: The arterial phase contrast-enhanced images of theliver, spleen, pancreas, kidneys and adrenals are unremarkable. The gallbladderis present.PERITONEUM AND RETROPERITONEUM: There is no retroperitoneal or abdominallymphadenopathy. There is no abdominal ascites. STOMACHAND BOWEL: No evidence of bowel obstruction. No bowel wall thickeningor perienteric inflammation.BLADDER: The bladder is unremarkable.OSSEOUS STRUCTURES: There are no acute osseous abnormalities seen.IMPRESSION:1. 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 Right leg: Moderate to severe stenosis of the right common iliac artery(approximately 75%).3. Noacute abnormality abdomen or pelvis.SL: [id number]--Qbms by: Caleb Boudreaux MDDictated Date/time: 06/15/18 15:06Electronically Signed by: Caleb Boudreaux MD 06/15/1914:17FINAL REPORTUnOrem [facility] Hospitalo Use Screening 2018-05-31 11:15:00 Test Item Value Reference Range Interpretation Comments Completed (test code = Completed) DONE [facility] PhysiciansXR Fluoroscopy in Imaging per [id number] 13:21:31Patient: MAYURI SOFIA Date/Time12/18/201712:00 CDTReason for ExamInjectionReportLocation R 16Exam:Intraoperative fluoroscopyHistory: InjectionFindings:Intraoperative fluoroscopy images at the level of the lumbar spine provided. A linear marker seen at L2 level.Please see operative notes for further detail.Total fluoroscopy time: 0.2 minutes.Impression:Intraoperative fluoroscopy, lumbar spine. Final Dictated by: MD Michelet, Stacey FDictated DT/TM: 12/18/2017 1:20 pmSigned by: MD Michelet, Stacey FSigned (Electronic Signature): 12/18/2017 1:21 cnVJTJIBUEJWDF3760-73-20 15:18:0011.8[facility] LlmmpevKKFDBQHIOFIS5244-87-67 15:18:76801Oksiuxru AfimrbwTBVXBBYLFRST0683-39-96 15:18:009.1[facility] GyzdcczBEQVFFJAHJLP7543-61-12 15:18:0027[facility] UYOPYLLXVBPR0965-77-44 15:18:21195Mplhnafh WgouvnwIXGKTEVBLCIK0203-53-59 15:18:000.72[facility] GocummzNYLDYYTQESPR4431-00-26 15:18:0099[facility] JCKBTIKFMCBK5112-99-80 15:18:0012[facility] HkckouzUZWMZJZZKKUJ3167-04-28 15:18:00 106[facility] KfgackbDSNNWXAIWIGM0928-83-98 15:18:003.8[facility] HermannHEMATOLOGY 2016-01-21 15:18:004.7[facility] OigwonjSSVBRPEKTE3060-29-96 15:18:000.6[facility] GybcpysMWWRMOUYEC3251-59-68 15:18:001.9[facility] PijanhrAYNNGIWLIJ3568-44-94 15:18:000.5[facility] KodazxjIPVLLOSGWW9528-31-11 15:18:0065.2[facility] NGGYZWDCNG3059-58-10 15:18:0026.2[facility] OvhlzdoMOECBBNIZC6566-77-37 15:18:00 7.4[facility] VofkhetHAUCIZNCET3169-98-88 15:18:000.6[facility] HermannHEMATOLOGY 2016-01-21 15:18:000.97[facility] RdtdcviPJYYMQASII5447-29-81 15:18:00 Test Item Value Reference Range Interpretation Comments PROTIME (test code = PROTIME) 13.1 s 12.0-14.7 [facility] DbfellaASOXJYEFPG9455-00-83 15:18:00 Test Item Value Reference Range Interpretation Comments aPTT (test code = aPTT) 30.7 s 22.9-35.8 [facility] MttiafeQTHWPIIGIP8172-82-86 15:18:0015.5[facility] HermannHEMATOLOGY 2016-01-21 15:18:0045.4[facility] VrwogxiFFPRMZMYNA4509-49-82 15:18:0087.9[facility] UsswproPGKUVLQWGO5970-03-80 15:18:00 Test Item Value Reference Range Interpretation Comments MCH (test code = MCH) 30.1 pg 27.0-31.0 [facility] ElrmeykUUDGBHMNKB0531-10-79 15:18:007.3[facility] HermannHEMATOLOGY 2016-01-21 15:18:005.16[facility] KzqilyxCLIQCREFDY9897-09-99 15:18:0034.3[facility] JudbwuxCPIUFVRFJE8111-73-96 15:18:0013.0[facility] ZlurocmEOALEJJOSZ6386-48-91 15:18:87440Mwqhedan LqyextlEYIHOHBFBV9673-41-36 15:18:007.9[facility] [place]
--- NOTE | 2019-11-19 10:53 | EDPHYS ---
Physician Documentation [facility] Name: Afshin Mercado Age: 64 yrs Sex: Male : 1955 Arrival Date: 11/19/2019 Time: 08:25 Bed 4 Private MD: ED Physician Nikolas Lee HPI: 11/18 09:38 This 64 yrs old Male presents to ER via Ambulatory with complaints of Back jr8 Pain. 09:38 The patient presents with pain that is chronic, and decreased range of motion. The jr8 symptoms are located in the low back. Onset: The symptoms/episode began/occurred gradually, and became worse. The pain does not radiate. Associated signs and symptoms: The patient has no apparent associated signs or symptoms. The problem was sustained from unknown cause. Modifying factors: The patient symptoms are alleviated by nothing, the patient symptoms are aggravated by any movement. Severity of symptoms: At their worst the symptoms were moderate, in the emergency department the symptoms are unchanged. The patient has experienced similar episodes in the past, a few times. The patient has not recently seen a physician. Patient stated that he has had longstanding low back problems but normally is fairly controlled. Stated that his low back started to ache of the last few days and now cannot tolerate pain . Historical: - Allergies: 08:41 NKA; iw - PMHx: 08:41 Degenerative disc disease; Hyperlipidemia; Hypertension; iw - PSHx: 08:41 Heart stents; iw - Immunization history:: Adult Immunizations up to date. - Social history:: Smoking status: Patient denies any tobacco usage or history of. ROS: 09:38 Eyes: Negative for injury, pain, redness, and discharge, ENT: Negative for injury, jr8 pain, and discharge, Neck: Negative for injury, pain, and swelling, Cardiovascular: Negative for chest pain, palpitations, and edema, Respiratory: Negative for shortness of breath, cough, wheezing, and pleuritic chest pain, Abdomen/GI: Negative for abdominal pain, nausea, vomiting, diarrhea, and constipation, MS/Extremity: Negative for injury and deformity, Skin: Negative for injury, rash, and discoloration, Neuro: Negative for headache, weakness, numbness, tingling, and seizure. 09:38 Back: Positive for decreased range of motion, pain at rest, pain with movement, of the low back area, Negative for radiated pain. Exam: 09:38 Constitutional: This is a well developed, well nourished patient who is awake, alert, jr8 and in no acute distress. Cardiovascular: Regular rate and rhythm with a normal S1 and S2. No gallops, murmurs, or rubs. Normal PMI, no JVD. No pulse deficits. Respiratory: Lungs have equal breath sounds bilaterally, clear to auscultation and percussion. No rales, rhonchi or wheezes noted. No increased work of breathing, no retractions or nasal flaring. Abdomen/GI: Soft, non-tender, with normal bowel sounds. No distension or tympany. No guarding or rebound. No evidence of tenderness throughout. Skin: Warm, dry with normal turgor. Normal color with no rashes, no lesions, and no evidence of cellulitis. MS/ Extremity: Pulses equal, no cyanosis. Neurovascular intact. Full, normal range of motion. Neuro: Awake and alert, GCS 15, oriented to person, place, time, and situation. Cranial nerves II-XII grossly intact. Motor strength 5/5 in all extremities. Sensory grossly intact. Cerebellar exam normal. Normal gait. 09:38 Back: pain, that is moderate, of the low back area, ROM is painful, with all movement, normal spinal alignment noted, CVA tenderness, is absent, vertebral tenderness, is not appreciated. Vital Signs: 08:41 BP 162 / 80; Pulse 60; Resp 18; Temp 98.0; Pulse Ox 97% on R/A; iw 09:45 BP 134 / 63; Pulse 55; Resp 17; Pulse Ox 99% ; bp 11:00 BP 140 / 70; Pulse 51; Resp 16; Temp 98; Pulse Ox 98% ; bp MDM: 08:46 Patient medically screened. jr8 10:50 Data reviewed: vital signs, nurses notes, and as a result, I will discharge patient. jr8 Data interpreted: Pulse oximetry: on room air is 99 %. Interpretation: normal. Counseling: I had a detailed discussion with the patient and/or guardian regarding: the historical points, exam findings, and any diagnostic results supporting the discharge/admit diagnosis, the need for outpatient follow up, a orthopedic surgeon, to return to the emergency department if symptoms worsen or persist or if there are any questions or concerns that arise at home. Response to treatment: the patient's symptoms have markedly improved after treatment. 08 08:47 Order name: IV; Complete Time: 09:04 jr8 Administered Medications: 09:00 Drug: TORadol - Ketorolac 15 mg Route: IVP; Site: right antecubital; bp 11:04 Follow up: Response: Pain is decreased bp 09:05 Drug: Decadron - Dexamethasone 10 mg Route: IVP; Site: right antecubital; bp 11:04 Follow up: Response: Marked relief of symptoms bp 09:45 Drug: Robaxin 1 grams Route: IVPB; Infused Over: 1 hrs; Site: right antecubital; bp 11:04 Follow up: IV Status: Completed infusion; IV Intake: 100ml bp 11:00 Drug: fentaNYL (PF) 50 mcg Route: IVP; Site: right antecubital; bp 11:04 Follow up: Response: Pain is decreased bp Disposition: 11:35 Co-signature as Attending Physician, Nikolas Lee MD. rn Disposition: 11/19/19 10:53 Discharged to Home. Impression: Low back pain. - Condition is Stable. - Discharge Instructions: Back Pain, Adult, Musculoskeletal Pain, Heat Therapy. - Prescriptions for meloxicam 15 mg Oral tablet - take 1 tablet by ORAL route once daily As needed; 20 tablet. Robaxin 500 mg Oral Tablet - take 2 tablet by ORAL route every 6 hours As needed; 40 tablet. Tylenol- Codeine #3 300-30 mg Oral Tablet - take 2 tablets by ORAL route every 6 hours As needed; 22 tablet. Medrol (Brian) 4 mg Oral Tablets, Dose Pack - take 1 tablet by ORAL route as directed - follow package instructions; 1 packet. - Medication Reconciliation Form, Thank You Letter, Antibiotic Education, Prescription Opioid Use form. - Follow up: Private Physician; When: 2 - 3 days; Reason: Recheck today's complaints, Continuance of care, Re-evaluation by your physician. - Problem is new. - Symptoms have improved. Signatures: Laura Esparza RN Nikolas Gonsales MD MD rn Roszak, Josh, PA PA jr8 Gary Faustin RN RN bp Corrections: (The following items were deleted from the chart) 11:21 10:53 11/19/2019 10:53 Discharged to Home. Impression: Low back pain. Condition is bp Stable. Forms are Medication Reconciliation Form, Thank You Letter, Antibiotic Education, Prescription Opioid Use. Follow up: Private Physician; When: 2 - 3 days; Reason: Recheck today's complaints, Continuance of care, Re-evaluation by your physician. Problem is new. Symptoms have improved. jr8
--- NOTE | 2019-11-19 10:53 | ER ---
Nurse's Notes [facility] Name: Afshin Mercado Age: 64 yrs Sex: Male : 1955 Arrival Date: 11/19/2019 Time: 08:25 Bed 4 Private MD: Diagnosis: Low back pain Presentation: 11/18 08:36 Chief complaint: Patient states: lower back pain X 1 month, worse X 2 days , hx of back iw pain. 08:43 Coronavirus screen: At this time, the client does not indicate any symptoms associated iw with coronavirus-19. Ebola Screen: Patient negative for fever greater than or equal to 101.5 degrees Fahrenheit, and additional compatible Ebola Virus Disease symptoms Patient denies exposure to infectious person. Patient denies travel to an Ebola-affected area in the 21 days before illness onset. No symptoms or risks identified at this time. Initial Sepsis Screen: Does the patient meet any 2 criteria? No. Patient's initial sepsis screen is negative. Does the patient have a suspected source of infection? No. Patient's initial sepsis screen is negative. Risk Assessment: Do you want to hurt yourself or someone else? Patient reports no desire to harm self or others. Onset of symptoms was November 17, 2019. 08:43 Method Of Arrival: Ambulatory iw 08:43 Acuity: LINDA 4 iw Triage Assessment: 08:40 General: Appears in no apparent distress. uncomfortable, Behavior is cooperative, bp appropriate for age, anxious. Pain: Complains of pain in back. EENT: No deficits noted. Neuro: No deficits noted. Cardiovascular: No deficits noted. Respiratory: No deficits noted. GI: No signs and/or symptoms were reported involving the gastrointestinal system. : No signs and/or symptoms were reported regarding the genitourinary system. Derm: No deficits noted. Musculoskeletal: Circulation, motion, and sensation intact. Range of motion: intact in all extremities. Historical: - Allergies: 08:41 NKA; iw - PMHx: 08:41 Degenerative disc disease; Hyperlipidemia; Hypertension; iw - PSHx: 08:41 Heart stents; iw - Immunization history:: Adult Immunizations up to date. - Social history:: Smoking status: Patient denies any tobacco usage or history of. Screenin:50 Abuse screen: Denies threats or abuse. Denies injuries from another. Nutritional bp screening: No deficits noted. Tuberculosis screening: No symptoms or risk factors identified. Fall Risk None identified. Assessment: 08:49 General: SEE TRIAGE NOTE. Neuro: Level of Consciousness is awake, alert, obeys bp commands, Oriented to person, place, time, situation, Appropriate for age. 09:00 Reassessment: ROBAXIN ORDER FAXED TO PHARMACY. bp 09:45 Reassessment: ADD'L MEDICATION INFUSING. VS STABLE ON MONITOR. bp 11:06 Reassessment: PT D/C HOME AMBULATORY, DX WITH LOW BACK PAIN. bp Vital Signs: 08:41 BP 162 / 80; Pulse 60; Resp 18; Temp 98.0; Pulse Ox 97% on R/A; iw 09:45 BP 134 / 63; Pulse 55; Resp 17; Pulse Ox 99% ; bp 11:00 BP 140 / 70; Pulse 51; Resp 16; Temp 98; Pulse Ox 98% ; bp ED Course: 08:25 Patient arrived in ED. as 08:26 Ashwin Mark PA is PHCP. jr8 08:26 Nikolas Lee MD is Attending Physician. jr8 08:42 Arm band placed on. iw 08:43 Triage completed. iw 08:47 Gary Faustin, RADHA is Primary Nurse. bp 08:50 Patient has correct armband on for positive identification. Bed in low position. Call bp light in reach. Side rails up X2. 09:00 Inserted saline lock: 22 gauge in right antecubital area, using aseptic technique. bp 11:05 No provider procedures requiring assistance completed. IV discontinued, intact, bp bleeding controlled, No redness/swelling at site. Pressure dressing applied. Administered Medications: 09:00 Drug: TORadol - Ketorolac 15 mg Route: IVP; Site: right antecubital; bp 11:04 Follow up: Response: Pain is decreased bp 09:05 Drug: Decadron - Dexamethasone 10 mg Route: IVP; Site: right antecubital; bp 11:04 Follow up: Response: Marked relief of symptoms bp 09:45 Drug: Robaxin 1 grams Route: IVPB; Infused Over: 1 hrs; Site: right antecubital; bp 11:04 Follow up: IV Status: Completed infusion; IV Intake: 100ml bp 11:00 Drug: fentaNYL (PF) 50 mcg Route: IVP; Site: right antecubital; bp 11:04 Follow up: Response: Pain is decreased bp Intake: 11:04 IV: 100ml; Total: 100ml. bp Outcome: 10:53 Discharge ordered by MD. clay 11:05 Discharged to home ambulatory. bp 11:05 Condition: stable 11:05 Discharge instructions given to patient, Instructed on discharge instructions, follow up and referral plans. medication usage, Demonstrated understanding of instructions, follow-up care, medications, Prescriptions given X 4. 11:21 Patient left the ED. bp Signatures: Yany Thornton Irene, RN RN iw Ashwin Mark PA PA jr8 Peltier, Brian, RN RN bp
[2019-11-19] MEDS ORDERED: FENTANYL CITR 100 MCG/2 ML ONE (11:11)
[2019-11-19 11:30] VITALS: BP 140/70; TEMP 98; O2SAT 98
== END 2019-11-19 11:21 | disposition home or self-care (01) ==
LOC: ER 08:21
DX: M54.5 Low back pain (principal); I10 Essential (primary) hypertension; Z95.818 Presence of other cardiac implants and grafts
CPT/HCPCS: 96365; 96375; 99283; J3010; J1100; J2800

== ENCOUNTER 2020-11-21 22:35 | Emergency (ER) | payer OTHER, BC ==
--- OUTSIDE RECORDS SUMMARY | 2020-11-21 22:41 | XMS REPORT | Continuity of Care Document ---
:1955 Author Organization [facility] t Address [address] [place] [address] Care Team Providers Name Role Phone OMI Attending Clinician Unavailable [facility] Attending Clinician Unavailable CO19 Attending Clinician Unavailable Milagro Joshi Attending Clinician Omi Attending Clinician Milagro Ko Attending Clinician Omi Admitting Clinician Problems Condition Condition Condition Status Onset Resolution Last Treating Co mments Source Name Details Category Date Date Treatment Clinician Date N28.81, Diagnosis Active 2018-07-16 Me moria Z98.890 4-03 15:58:00 l N28.81, 00:00: [facility] Z98.890 00 Active 07/14/2018 [facility] UNK Diagnosis Active 2018-06-24 Mem oria 3- 13:28:00 l UNK 00:00: Ganesh 00 Active 06/17/2018 [facility] I73.9 Diagnosis Active 2018-06-30 Mem oria 3- 05:17:00 l I73.9 00:00: Ganesh 00 Active 06/17/2018 [facility] PERIPHERAL Diagnosis Active 2018-07-01 Memoria VASCULAR 3-07 11:03:00 l DISEASE 00:00: Ganesh PERIPHERAL 00 VASCULAR DISEASE Active 06/17/2018 [facility] CTA AORTA Diagnosis Active 2018-06-15 Memoria W/FEMORAL 06-09 07:00:00 l FUNOFF DX: CTA 00:00: Joseluis n I70.0=AT AORTA 00 W/FEMORAL FUNOFF DX: I70.0=AT Active 06/09/2018 [facility] SPONDYLOSI Diagnosis Active 2015-042016-09-16 Memoria S 0-06 22:37:00 l 00:00: [facility] SPONDYLOSI 00 S Active 01/17/2016 [facility] Ganesh Degenerati Problem Active 2018-10-21 M emoria on of 21:53:14 l lumbar [facility] interverte Degenerati bral disc on of (disorder) lumbar interverte bral disc (disorder) Active Problem 10/21/2018 [facility] Gastroesop Problem Active 2018-10-21 M emoria hageal 21:53:14 l reflux Ganesh disease Gastroesop (disorder) hageal reflux disease (disorder) Active Problem 10/21/2018 [facility] Herniation Problem Active 2018-10-21 M emoria of nucleus 21:53:14 l pulposus Ganesh (disorder) Herniation of nucleus pulposus (disorder) Active Problem 10/21/2018 [facility] Hyperlipid Problem Active 2018-10-21 M emoria emia 21:53:14 l (disorder) Joseluis n Hyperlipid emia (disorder) Active Problem 10/21/2018 [facility] Hypertensi Problem Active 2018-10-21 M emoria ve 21:53:14 l disorder, [facility] systemic Hypertensi arterial ve (disorder) disorder, systemic arterial (disorder) Active Problem 10/21/2018 [facility] Paresthesi Problem Active 2018-10-21 M emoria a of hand 21:53:14 l (finding) Ganesh Paresthesi a of hand (finding) Active Problem 10/21/2018 [facility] Spondylosi Problem Active 2018-10-21 M emoria s 21:53:14 l (disorder) Joseluis n Spondylosi s (disorder) Active Problem 10/21/2018 [facility] PERIPHERAL Diagnosis Active 2018-07-01 Memoria VASCULAR 11:03:00 l DISEASE, [facility] UNSPECIFIE PERIPHERAL D VASCULAR DISEASE, UNSPECIFIE D Active [facility] Aortic Aortic Problem Active Univers atheroscle atheroscle it y of rosis rosis [place] [facility] Enlarged Enlarged Problem Active Unive rs kidney kidney ity of [place] Physici [facility] S/P S/P Problem Active Univers angiogram angiogram ity of of of [place] extremity extremity Phys ici ans PVD PVD Problem Active Univers (periphera (periphera it y of l vascular l vascular [place] disease) disease) Physic i ans Bilateral Bilateral Problem Active Uni vers carotid carotid ity of artery artery [place] disease disease Physici ans Encounter Encounter Problem Active Uni vers for for ity of administra administra [place] tion of tion of Physici COVID-19 COVID-19 ans vaccine vaccine Allergies, Adverse Reactions, Alerts This patient has no known allergies or adverse reactions. Social History Social Habit Start Date Stop Date Quantity Comments Source Social History 2018-06-30 2018-06-30 [facility] ermann 23:28:11 23:28:11 Smoking Status Start Date Stop Date Source Ex-smoker (finding) [place] [facility] Physicians Medications Ordered Filled Start Stop Current Ordering Indication Dosage Frequency Signature Comments Components Source Medication Medication Date Date Medication? Clinician (SIG) Name Name Scooby Yes Notes: Memori a 350 4-05 (same l injectable 22:00: as:Omnipaq H ermann solution 00 ue 350). WASTE: F/P - Black; E - Vivid Logic Trash Bin clopidogrel Yes 75 mg = 1 M emoria 75 mg oral 3-21 tab, PO, l tablet 14:40: Daily, # Ganesh 00 90 tab, 3 Refill(s) Aspirin 81 Yes 81 mg = 1 Me moria MG Enteric 3-21 tab, PO, l Coated 14:40: Daily, # [facility] Tablet 00 90 tab, 3 Refill(s) Aspirin 81 No 81 mg = 1 Me moria MG Enteric 3-21 tab, PO, l Coated 14:39: Daily, 0 Ganesh Tablet 00 Refill(s) clopidogrel No 75 mg = 1 M emoria 75 mg oral 3-21 tab, PO, l tablet 14:39: Daily, 0 Ganesh 00 Refill(s) Aspirin No Notes: Do Memor ia 3-21 not crush l 14:00: or chew. Ganesh 00 (Same As: Ecotrin) Cozaar No Notes: Memoria 3-21 (Same as: l 14:00: Cozaar) Ganesh 00 Hydrochloro No 1 tab, Al piter thiazide 25 3-21 Route: PO, l MG / 14:00: Drug Form: Ganesh Losartan 00 TAB, Potassium Dosing 100 MG Oral Weight Tablet 88.182, kg, Daily, Start date: 07/01/18 9:00:00 CDT, Duration: 30 day, Stop date: 07/30/18 9:00:00 CDT Amlodipine No Notes: Memor ia 3-21 (Same as: l 14:00: Norvasc) hydrochloro No Notes: Al piter thiazide 25 3-21 (Same as: l mg oral 14:00: Hydrodiuri Herm quinn tablet 00 l) With food. Plavix No Notes: Memoria 3-21 (Same As: l 14:00: Plavix) Lipitor No Notes: Memoria 3-21 (Same As: l 02:00: Lipitor) Oxycodone 2018-0 No 5 mg, Memoria Hydrochlori 3-20 Route: [...] Stop date: Limited # of times Flumazenil 2018-0 No 0.2 mg, Al piter 3-20 Route: l 16:43: IVP, PRN, Dosing Weight 88.182, kg, PRN Benzodiaze pine Reversal, Initial dose, Start date: 06/30/18 11:43:00 CDT, Duration: 30 day, Stop date: 07/30/18 11:42:00 CDT Hydralazine No 10 mg, Al piter 3-20 Route: l 16:43: IVP, [facility] 00 Q20Min, Dosing Weight 88.182, kg, PRN Elevated BP, Start date: 06/30/18 11:43:00 CDT, Duration: 2 doses or times, Stop date: Limited # of times Acetaminoph No Notes: Al piter en 325 MG / 3-20 (Same as: l Hydrocodone 15:55: [employer] Ольга nn Bitartrate 00 325/5) Do 5 MG Oral not exceed Tablet 4gm/day of [[employer] acetaminop 5/325] hen. Acetaminoph No Notes: Do M emoria en 3-20 not exceed l 15:54: 4 gm/day. [facility] (Same as: Tylenol) Sodium No 1,000 mL, [...] ONCE, Stop date: 06/30/18 10:47:00 CDT protamine 2018-0 No Route: IV, Me moria (ANES) 10 3-20 Drug form: l mg 15:38: INJ, Start date: 06/30/18 10:38:00 CDT, Stop date: 06/30/18 11:38:00 CDT ondansetron 2018-0 No Route: IV, Memoria (ANES) 3-20 Drug form: l 15:01: INJ, ONCE, Stop date: 06/30/18 10:01:00 CDT heparin 2019-0 No Route: IV, Al piter (ANES) 3-20 Drug form: l 14:16: INJ, ONCE, Stop date: 06/30/18 9:16:00 CDT metoclopram 2018- No Route: IV, Memoria seth (ANES) 3-20 Drug form: l 13:36: INJ, ONCE, Stop date: 06/30/18 8:36:00 CDT midazolam 2018-0 No Route: IV, Me moria (ANES) 3-20 Drug form: l 13:36: SOLN, 00 ONCE, Stop date: 06/30/18 8:36:00 CDT fentaNYL 2018-0 No Route: IV, Mem oria (ANES) 3-20 Drug form: l 13:36: INJ, ONCE, Stop date: 06/30/18 8:36:00 CDT Lactated No Route: IV, Mem oria Ringers 3-20 Total l Injection 12:47: Volume: Ольга nn IV (ANES) 00 1,000, 1000 mL Start date: 06/30/18 7:47:00 CDT, Stop date: 06/30/18 8:47:00 CDT Calcium 2018-0 No 1,000 mL, Memor ia Chloride -20 Rate: 25 l 0.0014 12:34: ml/hr, Ganesh MEQ/ML / 00 Infuse Potassium over: 40 Chloride hr, Route: 0.004 IV, Dosing MEQ/ML / Weight Sodium 88.182 kg, Chloride Total 0.103 Volume: MEQ/ML / 1,000, Sodium Start Lactate date: 0.028 06/30/18 MEQ/ML 7:34:00 Injectable CDT, Solution Duration: 30 day, Stop date: 07/30/18 7:33:00 CDT, 2.06, m2 amLODIPine 2019 Yes 5 mg = 1 Mem oria 5 mg oral 3-18 tab, PO, l tablet 18:20: Daily, 0 [facility] 00 Refill(s) Omnipaque Yes Notes: Memori a 350 3-05 (same l injectable 15:00: as:Omnipaq H ermann solution 00 ue 350). WASTE: F/P - Black; E - Municipal Trash Bin Insulin, 2015-04 No Notes: Memoria Aspart, 0-10 Roll in l Human 20:02: palms of [facility] 00 hands gently; Do not shake vigorously . (Same as: NovoLOG) "single patient use only" WASTE: F/P - Black; E - Municipal Trash Bin Stable for 28 days at room temperatur e. Expires in days from ____Date Acetaminoph 2015-04 No Notes: Do M emoria en 325 MG / 0-10 not exceed l Hydrocodone 20:02: 4gm/day of [facility] Bitartrate 00 acetaminop 10 MG Oral hen. Tablet (Same as: [[employer] Coventry 10/325] 325/10) Acetaminoph 2015-04 No Notes: Al piter en 325 MG / 0-10 (Same as: l Hydrocodone 20:02: [employer] Ольга nn Bitartrate 00 325/5) Do 5 MG Oral not exceed Tablet 4gm/day of [[employer] acetaminop 5/325] hen. Morphine 2015-04 No Notes: Memoria 0-10 (Same l 20:02: as:MORPhin [facility] 00 e Sulfate) Acetaminoph 2015-04 No Notes: [...] 10 MG Oral hen. Tablet (Same as: [employer] 325/10) Morphine 2015-04 No Notes: Memoria 0-10 (Same l 19:45: as:MORPhin e Sulfate) Ancef 2015-04 Yes Notes: Memoria 0-10 Same as l 15:42: Ancef [facility] 00 Lactated 2015-04 No 1,000 mL, Al piter Ringers 0-10 Rate: 40 l 1,000 mL 15:42: ml/hr, Infuse over: 25 hr, Route: IV, Dosing Weight 88.636 kg, Total Volume: 1,000, Start date: 01/21/16 10:42:00 CDT, Duration: 30 day, Stop date: 02/20/16 10:41:00 [employer] Vitamin B12 2015-04 Yes See Memori a 0-06 Instructio l 22:26: ns, 0 [facility] 00 Refill(s) multivitami 2015-04 Yes See Memori a n 0-06 Instructio l 22:25: ns, Daily, 0 Refill(s) Hydrochloro 2015-04 Yes 1 tab, [...] Oral MG Oral ity of Tablet Tablet [place] [facility] Losartan Losartan Yes Univers Potassium Potassium ity o f 100 MG Oral 100 MG Oral [place] Tablet Tablet Physici ans hydroCHLORO hydroCHLORO Yes U nivers thiazide 25 thiazide 25 i ty of MG Oral MG Oral [place] Tablet Tablet Physici ans Norvasc 5 Norvasc 5 Yes Unive rs MG Oral MG Oral ity of Tablet Tablet [place] [facility] Immunizations Ordered Immunization Filled Immunization Date Status Commen ts Source Name Name [place]-BioNTSolum 2020-06-11 Completed Universit y of COVID-19 Vacc 30 08:40:00 [place] [facility] MCG/0.3ML Intramuscular Suspension Pfizer-BioNTech 2020-05-18 Completed Universit y of COVID-19 Vacc 30 09:00:00 [place] [facility] MCG/0.3ML Intramuscular Suspension Hx tetanus toxoid 2016-01-17 Completed [place] Ganesh vaccine<sup>1</sup> 22:29:00 Vital Signs Vital Name Observation Time Observation Value Comments Source Body height 2020-06-18 09:15:00 68 [in_us] [facility] Physician s Weight 2020-06-18 09:15:00 193 [lb_av] [facility] Physician s Body mass index 2020-06-18 09:15:00 29.35 kg/m2 Unive rsity of (BMI) [Ratio] [place] [facility] ns Body temperature 2020-06-18 09:15:00 97.7 [degF] Univ ersity of [place] Physician s Heart Rate 2020-06-18 09:15:00 77 /min [facility] Physician s Systolic blood 2020-06-18 09:15:00 180 mm[Hg] Univer sity of pressure [place] Physician s Diastolic blood 2020-06-18 09:15:00 98 mm[Hg] Unive rsity of pressure [place] Physician s Systolic blood 2020-01-02 12:07:00 163 mm[Hg] Univer sity of pressure [place] Physician s Diastolic blood 2020-01-02 12:07:00 84 mm[Hg] Unive rsity of pressure [place] Physician s Body height 2020-01-02 12:07:00 68 [in_us] [facility] [place] [facility]ician s Body temperature 2020-01-02 12:07:00 98.2 [degF] Univ ersity of [place] Physician s Heart Rate 2020-01-02 12:07:00 67 /min [facility] [place] [facility]ician s Systolic blood 2019-06-20 08:58:00 151 mm[Hg] Univer sity of pressure [place] Physician s Diastolic blood 2019-06-20 08:58:00 71 mm[Hg] Unive rsity of pressure [place] Physician s Body height 2019-06-20 08:58:00 68 [in_us] [facility] [place] [facility]ician [facility] Weight 2019-06-20 08:58:00 194 [lb_av] [facility] [place] [facility] Body mass index 2019-06-20 08:58:00 29.5 kg/m2 Unive rsity of (BMI) [Ratio] [place] Phys[facility] ns BP Systolic 2018-10-25 09:17:00 148 mm[Hg] [facility] [place] [facility]ician [facility] BP Diastolic 2018-10-25 09:17:00 80 mm[Hg] [facility] [place] [facility] Height 2018-10-25 09:17:00 68 [in_us] [facility] [place] [facility] Weight 2018-10-25 09:17:00 195 [lb_av] [facility] [place] [facility] Body Mass Index 2018-10-25 09:17:00 29.65 kg/m2 Unive rsity of Calculated [place] Physician s BP Systolic 2018-07-19 15:10:00 164 mm[Hg] [facility] [place] [facility]ician s BP Diastolic 2018-07-19 15:10:00 77 mm[Hg] [facility] [place] [facility] Height 2018-07-19 15:10:00 68 [in_us] [facility] [place] [facility] Weight 2018-07-19 15:10:00 190 [lb_av] [facility] [place] [facility] Body Mass Index 2018-07-19 15:10:00 28.89 kg/m2 Unive rsity of Calculated [place] Physician s Respitory Rate 2018-07-01 14:00:00 Memori al [facility] Systolic (mm Hg) 2018-07-01 14:00:00 Al rial Ganesh Diastolic (mm Hg) 2018-07-01 14:00:00 Mem orial Ganesh Systolic (mm Hg) 2018-07-01 13:00:00 Al rial [facility] Diastolic (mm Hg) 2018-07-01 13:00:00 Mem orial [facility] Respitory Rate 2018-07-01 13:00:00 Memori al [facility] Systolic (mm Hg) 2018-07-01 12:00:00 Al rial [facility] Diastolic (mm Hg) 2018-07-01 12:00:00 Mem orial Ganesh Respitory Rate 2018-07-01 12:00:00 Memori al [facility] Height 2018-06-30 21:22:00 170 cm [facility] Weight 2018-06-30 21:22:00 [facility] BMI Calculated 2018-06-30 21:22:00 Memori al Ganesh Heart Rate 2018-06-28 18:19:00 [facility] Temperature Oral (F) 2018-06-28 18:19:00 97.8 F [facility] Weight 2018-06-28 18:19:00 [facility] BMI Calculated 2018-06-28 18:19:00 Memori al [facility] Height 2018-06-28 18:19:00 170.18 cm [facility] BP Systolic 2018-05-31 11:54:00 156 mm[Hg] Universi ty [facility] Physician s BP Diastolic 2018-05-31 11:54:00 77 mm[Hg] Universi ty [facility] Physician s Height 2018-05-31 11:54:00 68 [in_us] Universi ty [facility] Physician s Weight 2018-05-31 11:54:00 194 [lb_av] Universi ty [facility] Physician s Body Mass Index 2018-05-31 11:54:00 29.5 kg/m2 Unive rsity of Calculated [place] Physician s Systolic (mm Hg) 2016-01-21 21:00:00 Al rial Ganesh Diastolic (mm Hg) 2016-01-21 21:00:00 Mem orial [facility] Respitory Rate 2016-01-21 21:00:00 Memori al [facility] Systolic (mm Hg) 2016-01-21 20:45:00 Al rial Ganesh Diastolic (mm Hg) 2016-01-21 20:45:00 Mem orial Ganesh Respitory Rate 2016-01-21 20:45:00 Memori al [facility] Systolic (mm Hg) 2016-01-21 20:30:00 Al rial [facility] Diastolic (mm Hg) 2016-01-21 20:30:00 Mem orial [facility] Respitory Rate 2016-01-21 20:30:00 Memori al Ganesh Heart Rate 2016-01-21 15:18:00 [facility] Temperature Oral (F) 2016-01-21 15:18:00 98 F [facility] Weight 2016-01-17 22:04:00 [facility] G[facility]h BMI Calculated 2016-01-17 22:04:00 [facility] Height 2016-01-17 22:04:00 172.72 [facility] [place] [facility] Procedure Date / Time Performed Performing Clinician Sourc e CVRAD - Bilateral 2020-06-18 00:00:00 [facility] Carotid Duplex - Physicians [id number] CVRAD - Abdominal 2020-06-18 00:00:00 [facility] Duplex Comp - [id number] Physicians CVRAD - Bilateral 2020-06-18 00:00:00 [facility] Lower Arterial Duplex Physicians - [id number] CVRAD - Lower 2020-06-18 00:00:00 [place] [facility] Arterial Seg. Physicians Pressures - [id number] CVRAD - Abdominal 2019-06-20 00:00:00 [facility] Duplex Comp - [id number] Physicians CVRAD - Bilateral 2019-06-20 00:00:00 [facility] Lower Arterial Duplex Physicians - [id number] CVRAD - Lower 2019-06-20 00:00:00 [facility] [place] Arterial Seg. Physicians Pressures - [id number] CVRAD - Abdominal 2018-10-25 00:00:00 [facility] Duplex Comp - [id number] Physicians CVRAD - Bilateral 2018-10-25 00:00:00 [facility] Lower Arterial Duplex Physicians - [id number] CVRAD - Lower 2018-10-25 00:00:00 [place] [facility] Arterial Seg. Physicians Pressures - [id number] CVRAD - Abdominal 2018-07-14 00:00:00 [facility] Duplex Comp - [id number] Physicians CVRAD - Bilateral 2018-07-14 00:00:00 [facility] Lower Arterial Duplex Physicians - [id number] CVRAD - Lower 2018-07-14 00:00:00 [facility] o f [place] Arterial Seg. Physicians Pressures - [id number] CTA Abdomen/Pelvis 2018-07-14 00:00:00 [facility] [id number] Physicians CVRAD - Bilateral 2018-06-09 00:00:00 [facility] Carotid Duplex - Physicians [id number] CVRAD - Abdominal 2018-06-09 00:00:00 [facility] Duplex Comp - [id number] Physicians CVRAD - Bilateral 2018-06-09 00:00:00 [facility] Lower Arterial Duplex Physicians - [id number] CVRAD - Lower 2018-06-09 00:00:00 [facility] o f [place] Arterial Seg. Physicians Pressures - [id number] CTA Aorta with 2018-06-09 00:00:00 [place] [facility] femoral runoff [id number] Physicians Colon[facility]<sup>1[facility] [place] [facility] Encounters Start End Encounter Admission Attending Care Care Encounter Source Date/Time Date/Time Type Type Clinicians Facility Department ID 2020-06-18 2020-06-18 AppointEMA [place] [id number] [facility] 09:00:00 09:00:00 t; FERNANDO BRAGA M.D. cic & ity of [place] WOODY M.D. Surgery - Physic i [facility] ans 2020-06-18 2020-06-18 AppointEMA [facility] [id number] Univers 07:30:00 07:30:00 t; DR OMI rdz & ity o [facility] Surgery - Physi ci [facility] ans 2020-06-11 2020-06-11 Appointmen COEMA Cowart UTP [id number] Univers 08:40:00 08:40:00 t; CO19, NURSE-COOLE i ty of NURSE-COOL Y [place] EY Physici ans 2020-05-18 2020-05-18 Appointmen COSupa, UTP UTP [id number] Univers 09:00:00 09:00:00 t; CO19, NURSE-COOLE i ty of NURSE-COOL Y [place] EY Physici ans 2020-01-02 2020-01-02 [facility] [id number] Univers 12:30:00 12:30:00 t; FERNANDO BRAGA M.D. cic & [place] Ch M.D. Surgery - Physic i [facility] 2020-01-02 2020-01-02 Appointmen [facility] Cardi[facility] [id number] Univers 11:00:00 11:00:00 t; DR OMI rdz & jay [place] [facility] Surgery - Physi ci [facility] 2019-06-20 2019-06-20 Appointmen [facility] [id number] Univers 08:45:00 08:45:00 t; FERNANDO BRAGA M.D. cic & [place] Ch M.D. Surgery - Physic i [facility] 2019-06-20 2019-06-20 Appointmen [facility] Cardi[facility] [id number] Univers 07:00:00 07:00:00 t; DR OMI [place] [facility] Surgery - Physi ci [facility] 2018-10-25 2018-10-25 Appointmen [facility] [id number] Univers 09:00:00 09:00:00 t; FERNANDO BRAGA M.D. cic & [place] Ch M.D. Surgery - Physic i [facility] 2018-10-25 2018-10-25 Appointmen [facility] Cardi[facility]ora [id number] Univers 07:30:00 07:30:00 t; DR OMI [place] [facility] Surgery - Physi ci [facility] 2018-10-19 2018-10-19 Ambulatory nullFlavo [facility] [id number] Memoria 18:40:00 18:40:00 Pre-Reg r Urology maria e granados Subramanian 2018-10-19 2018-10-19 Outpatient PEREZ TODD [id number] Memoria 13:40:00 13:40:00 Cezar Andersen 2018-10-19 2018-10-19 Outpatient Madelyn [facility] [id number] 13:40:00 13:40:00 Campbell Humphrey 2018-07-20 2018-07-20 Outpatient MHIE MHIE [id number] Memoria 13:50:00 13:50:00 00 l Ganesh 2018-07-19 2018-07-19 [facility] [id number] [facility] 15:30:00 15:30:00 t; FERNANDO BRAGA M.D. cic and [place] Ch M.D. Surgery - Physic i Dr. Fernadno Braga 2018-07-16 2018-07-17 Outpatient nullFlavo [facility] [id number] Memoria 20:48:00 04:59:00 r Ganesh 03 l [facility] 2018-07-16 2018-07-16 Outpatient Omi, MHSE MHSE [id number] 15:48:00 23:59:00 Fernando 2018-07-16 2018-07-16 Outpatient MHSE MHSE [id number] 15:48:00 15:48:00 [facility] 2018-07-14 2018-07-14 [facility] [id number] [facility] 08:00:00 08:00:00 t; DR OMI rdz and jay [place] BRAGA Surgery - Physi ci Dr. Fernando Braga 2018-06-30 2018-07-01 Inpatient nullFlavo [facility] [id number] Memoria 15:54:00 15:06:00 r Ganesh 02 l [facility] 2018-06-30 2018-07-01 Outpatient MHSE MHSE [id number] 10:54:00 10:06:00 2018-06-15 2018-06-16 Outpatient nullFlavo [facility] [id number] Memoria 12:52:00 05:59:00 r Ganesh 01 l [facility] 2018-06-15 2018-06-15 Outpatient Omi, MHSE MHSE [id number] 06:52:00 23:59:00 Fernando 2018-06-09 2018-06-09 [facility] [id number] Univers 06:00:00 06:00:00 t; DR OMI rdz and jay [place] BRAGA Surgery - Physi ci Dr. Fernando Braga 2018-05-31 2018-05-31 Appointmen EMA BRAGA [facility] [id number] Univers 11:15:00 11:15:00 t; FERNANDO BRAGA M.D. [facility] and ity of [place] WOODY M.D. Surgery - Physic i Dr. Fernando Braga 2016-01-21 2016-01-22 Day [facility] [id number] Memoria 14:43:00 04:59:00 Surgery r Ganesh 00 l Orthopedic [facility] 2016-01-21 2016-01-21 Outpatient Maikel Michelleclayton [facility] [id number] 09:43:00 23:59:00 S 00 Results Test Test Test Results Result Source Description Time Comments Comments CHEM PANEL [facility] Ganesh 20:05:00 CHEM PANEL 0.8 [facility] 20:05:00 CTA 2018-07- Patient Name: [facility] Abdomen/Pelvis 05 BUSBYDOB: 1955; Age: [place] [address] 16:01:00 63 years y/o MaleMR: Tevin antoine [id number]* CT ANGIOGRAPHY OF THE ABDOMEN & PELVIS, [...] artery calcifications.12. The regional skeleton is unremarkable.SL: [id number]--Rtae by: Fili Mendoza MDDictated Date/time: 07/18/18 08:41Electronically Signed by: Fili Mendoza MD 07/18/1910:17FINAL REPORT HEMATOLOGY .9 [facility] 21 Ganesh 11:34:00 HEMATOLOGY 66.0 [facility] 11:34:00 HEMATOLOGY 2018-06-14.41 [facility] 21 [facility] 11:34:00 HEMATOLOGY 39.4 [facility] 21 Ganesh 11:34:00 HEMATOLOGY 13.4 [facility] 21 Ganesh 11:34:00 HEMATOLOGY 89.4 [facility] 21 [facility] 11:34:00 HEMATOLOGY 2018-07-01 11:34:00 Test Item Value Reference Range Interpretation Comme nts MCH (test code = MCH) 30.4 pg 27.0-31.0 [facility] [id number] 11:34:007.8[facility] 2018-07-01 11:34:0013.1[facility] [id number] 11:34:0034.0[facility] [id number] 11:34:81383Kmlkdgpk KqdmzwzGCTXTKHTEI9606-16-96 11:34:007.0[facility] HermannCHEM [id number] 11:34:0088[facility] HermannCHEM [id number] 11:34:008.2[facility] HermannCHEM [id number] 11:34:0030 [facility]annCHEM [id number] 11:34:95510Xvsubfhr HermannCHEM PANEL 2018-07-01 11:34:003.7[facility] HermannCHEM [id number] 11:34:32335Exhvlnud HermannCHEM DTDAK0543-91-30 11:34:0015[facility]annCHEM FYIPL1208-20-01 11:34:000.91[facility]annCHEM TSPMV4535-23-10 11:34:0091[facility]annCHEM IFUKT5558-96-95 11:34:005.7[facility] FalgosgRRTROEJIPX6211-21-36 11:34:001.4 [facility] DqhmqixFVTMVNBYNG1585-07-45 11:34:004.6[facility]annHEMATOLOGY 2018-07-01 11:34:000.1[facility] OskytbcUVDBPNUDWC9674-40-72 11:34:000.8[facility] WrgpmtdJPGCJLYOVK7094-86-56 11:34:000.7[facility] HfxgqmuABBSBLGHTI9970-78-31 11:34:001.7[facility] JwvfxkkVBKFXHASJI6450-92-90 11:34:0011.7[facility] BLOOD B[facility] YDJQHJP1571-84-60 18:34:00Negative (06/28/18 1:34 PM)[facility] EMMHDKTINIBB1955-87-21 18:34:005.3[facility] YnycdxwCFFPYAVRNEFN4848-83-98 18:34:0090[facility] VlskoxnGSOWTGWMEHZC0596-32-90 18:34:36842Ttetjiun Ganesh OQJSQMCFZXBG7422-16-51 18:34:0033[facility] IjgxmtgMULKIVKBHZTL2198-93-40 18:34:00 9.6[facility] EnkhqpxJOPQKYRLOKIL4897-55-12 18:34:0011[facility]annELECTROLYTES 2018-06-28 18:34:0086[facility] SeghcgtOAUHLSNZSCYO5745-85-63 18:34:004.3[facility] VbvoadcIQRWQNYBLTFL7777-65-02 18:34:15524Kbyawgyl MfwpnqsPESPPYDKDINE8289-71-61 18:34:000.89[facility] QnpgpgvVKLEJZTABL3531-37-10 18:34:007.9[facility] QFAHDPRXTB3726-01-87 18:34:0033.7[facility] IxjrdhyGHOEKFQOBM1650-70-81 18:34:00 237[facility] VrpykiwZBPJPJIJCZ7681-23-80 18:34:0013.3[facility]annHEMATOLOGY 2018-06-28 18:34:00 Test Item Value Reference Range Interpretation Comments MCH (test code = MCH) 30.3 pg 27.0-31.0 [facility] AzxccdwMAVCRRVNXP0167-89-31 18:34:0046.0[facility]annHEMATOLOGY 2018-06-28 18:34:0015.5[facility] NtgcovbXPHJYZRBAA4187-71-14 18:34:0089.8[facility] XrxvlovDNUZNSILJG3215-62-51 18:34:005.13[facility] HuwrguyOYGNWVIYWG9521-65-13 18:34:007.4[facility] AyrveaqOPDLOATMEO0536-74-55 18:34:00 Test Item Value Reference Range Interpretation Comments INR (test code = INR) 0.91 1 0.85-1.17 [facility] EqlsdrkVMEYUNISJJ5308-50-07 18:34:00 Test Item Value Reference Range Interpretation Comments PT (test code = PT) 12.1 s 12.0-14.7 [facility] JyntkrkPTYSXWJHPW4049-47-36 18:34:00 Test Item Value Reference Range Interpretation Comments PTT (test code = PTT) 30.6 s 22.9-35.8 [facility] KpucjgnLTDRZSBQRU0951-76-71 18:34:000.1[facility]annHEMATOLOGY 2018-06-28 18:34:009.9[facility] AztijriDMVJFZARZD5550-03-21 18:34:000.7[facility] YywypwyBGUQEVJCHR8530-39-60 18:34:000.9[facility] ImpihubIIAIPIYCKL5698-44-47 18:34:004.6[facility] NbctswuTUARNVVRRS0183-74-39 18:34:000.6[facility] IEVAFXBEOQ1809-62-40 18:34:002.0[facility] NjpvmzpVJVIAXQQWV9329-97-72 18:34:00 26.9[facility] JkovjhtYHQBJQELIQ0243-44-74 18:34:0061.7[facility] UAGLN8122-59-11 18:34:00None Seen (06/28/18 1:34 PM)[facility] WZRKC6023-94-10 18:34:00<1[facility] DEUBN6227-07-05 18:34:00 <1[facility] YODEK1341-57-60 18:34:00Negative (06/28/18 1:34 PM)[facility] LCFFD9733-91-14 18:34:00Negative (06/28/18 1:34 PM) [facility] HDLDG0216-83-60 18:34:00Negative (06/28/18 1:34 PM) [facility] ETBUQ9411-18-71 18:34:00Negative *NA*(06/28/18 1:34 PM) [facility] UKGAZ2704-90-39 18:34:00Negative *NA*(06/28/18 1:34 PM) [facility] EKKLG7820-64-72 18:34:00Negative *NA*(06/28/18 1:34 PM) [facility] QHAVG8312-21-67 18:34:00Negative (06/28/18 1:34 PM) [facility] ZBOFN2094-82-31 18:34:00 Test Item Value Reference Range Interpretation Comments UA pH (test code = UA pH) 5.0 1 5.0-8.0 [facility] AARMC9331-96-95 18:34:00 Test Item Value Reference Range Interpretation Comments UA Spec Grav (test code = UA Spec 1.006 1 Grav) [facility] SHTPQ0395-37-25 18:34:00Clear (06/28/18 1:34 PM) [facility]annX[facility] Chest 2 views [id number] 13:21:00Clinical Indication: 63 years Male with Coughing - preopComparison: NoneFINDINGS:The PA and lateral c hest radiographs shows normal lung volumes.No interstitial or airspace opacities.No pleural effusion.No pneumothorax.The cardiac silhouette is normal.Mild prominence of the left hilar region due to prominent pulmonaryvasculature.The trachea is midline.There are no acute osseous abnormalities noted.IMPRESSION:No acute cardiopulmonary abnormality.SL: [id number]--Ttpn by: Edwardo Oliveira MDDictated Date/time: 06/28/18 17:12Electronically Signed by: Edwardo Oliveira MD 7:12FINAL REPORTUnUtah State [facility] PhysiciansCHEM PFQVK8799-11-60 14:03:0094[facility]annCHEM WDUVD6399-58-03 14:03:000.8[facility] HermannCTA Aorta with femoral runoff [id number] 07:34:00Clinical Indication: - I70.0 Atherosclerosis of aorta, [...] artery(approximately 75%).3. Noacute abnormality abdomen or pelvis.SL: [id number]--Pxej by: Caleb Boudreaux MDDictated Date/time: 06/15/18 15:06Electronically Signed by: Caleb Boudreaux MD 06/15/1914:17FINAL REPORTUnUtah State Hospital PhysiciansTobacco Use Screening 2018-05-31 11:15:00 Test Item Value Reference Range Interpretation Comments Completed (test code = Completed) DONE [facility] PhysiciansXR Fluoroscopy in Imaging per Xmdw2536-43-75 13:21:31Patient: MAYURI SOFIA Date/Time12/18/201712:00 CDTReason for ExamInjectionReportLocation R 16Exam:Intraoperative fluoroscopyHistory: InjectionFindings:Intraoperative fluoroscopy images at the level of the lumbar spine provided. A linear marker seen at L2 level.Please see operative notes for further detail.Total fluoroscopy time: 0.2 minutes.Impression:Intraoperative fluoroscopy, lumbar spine. Final Dictated by: MD Tafoya Eniola FDictated DT/TM: 12/18/2017 1:20 pmSigned by: MD Tafoya Eniola FSigned (Electronic Signature): 12/18/2017 1:21 clMWWRSUCQOPIL1316-79-72 15:18:0011.8[facility] RrvtmriCMAWFPLBNFQL0520-10-47 15:18:88623Dyzwcnhb WuorqiaCXDXLKZPKFFP1750-22-38 15:18:009.1[facility] VvvunluAVDKSPJRWDWU1348-59-39 15:18:0027[facility] BGYDMMACUVOK3087-31-95 15:18:27860Xozxlifr GzovetdYULHTNIWZLJT2901-44-46 15:18:000.72[facility] YrspvgiUWVJRKOUCCOD0827-03-49 15:18:0099[facility] SWPVMBQXGDVQ0756-33-42 15:18:0012[facility] HjzdqnpOZBYAXABTQPY3074-14-51 15:18:00 106[facility] RjhbpozUZNOHPAWJQJT5188-47-82 15:18:003.8[facility] HermannHEMATOLOGY 2016-01-21 15:18:004.7[facility] HlqrpjcNAUNTLCQWV7015-97-09 15:18:000.6[facility] TqyutliOMECQCRHEM2597-85-42 15:18:001.9[facility] CcdmfjkWBJIAEXKAI6896-91-79 15:18:000.5[facility] UzmtljxVMLQEDLTPP1131-19-76 15:18:0065.2[facility] PYLJIHMZJD0605-03-04 15:18:0026.2[facility] VsisrelDPOBGQCSPD3453-78-54 15:18:00 7.4[facility] YfbdfcxASAFCARQHA6763-17-01 15:18:000.6[facility]annHEMATOLOGY 2016-01-21 15:18:000.97[facility] OnqkjpbTSYUNMQOVC4713-06-79 15:18:00 Test Item Value Reference Range Interpretation Comments PROTIME (test code = PROTIME) 13.1 s 12.0-14.7 [facility] GpxuznbZDSVSHLRJQ3613-72-65 15:18:00 Test Item Value Reference Range Interpretation Comments aPTT (test code = aPTT) 30.7 s 22.9-35.8 [facility] MuipfbhIEYHTAOWFK7249-80-46 15:18:0015.5[facility]annHEMATOLOGY 2016-01-21 15:18:0045.4[facility] TsxybeyNATCYSYTLS1261-39-74 15:18:0087.9[facility] RwegandVSMQAXRHGG8806-25-12 15:18:00 Test Item Value Reference Range Interpretation Comments MCH (test code = MCH) 30.1 pg 27.0-31.0 [facility] WhzftavUPPDHTABHZ2836-46-26 15:18:007.3[facility] HermannHEMATOLOGY 2016-01-21 15:18:005.16[facility] AgymkufBRTXSDIHLB5871-77-84 15:18:0034.3[facility] TzragznZHYCSDKLGB8014-43-47 15:18:0013.0[facility] YyvpjfbBSSEIYEVNI7951-76-12 15:18:46188Svrfofzj RyvarzoXGOTZMRMMW7993-56-26 15:18:007.9[facility]
--- NOTE | 2020-11-21 23:20 | EDPHYS ---
Physician Documentation [facility] Name: Afshin Mercado Age: 65 yrs Sex: Male : 1955 Arrival Date: 11/21/2020 Time: 22:38 Bed Waiting Private MD: Edmond Francisco V ED Physician Nikolas Lee HPI: 11/21 23:15 This 65 yrs old Male presents to ER via Ambulatory with complaints of Foreign rn Body In Ear. 23:15 The patient or guardian reports the patient has a suspected foreign body, of the ear, rn on the right. The reported likely foreign body is Earbud piece. Onset: The symptoms/episode began/occurred just prior to arrival. Current symptoms: foreign body sensation. Treatment Prior to Arrival: tried to remove, but couldn't get out, and pushed further in. The patient has not experienced similar symptoms in the past. The patient has not recently seen a physician. Patient forgot had earbud already in ear then placed hearing aid inside, pushing earbud piece further inside. Try to take it out with a Q-tip but unsuccessful.. Historical: - Allergies: 23:15 NKA; kg - PMHx: 23:15 Degenerative disc disease; Hyperlipidemia; Hypertension; kg - Immunization history:: Adult Immunizations up to date, Client reports receiving the 2nd dose of the Covid vaccine, Date received: July 01, 2020 [employer] Client reports receiving the 1st dose of the Covid vaccine, June 03, 2020 [employer]. - Social history:: Smoking status: Patient/guardian denies using tobacco, but has a distant history of tobacco abuse. - Family history:: not pertinent. - Hospitalizations: : No recent hospitalization is reported. ROS: 23:15 ENT: Foreign body sensation right ear canal rn Exam: 23:15 Constitutional: This is a well developed, well nourished patient who is awake, alert, rn and in no acute distress. ENT: Purple earbud piece lodged in proximal right ear canal Vital Signs: 23:12 BP 134 / 98; Pulse 75; Resp 20; Temp 98.2(TE); Pulse Ox 99% ; Weight 87.09 kg (R); kg Height 5 ft. 8 in. (172.72 cm); Pain 0/10; 23:12 Body Mass Index 29.19 (87.09 kg, 172.72 cm) kg Procedures: 23:15 Foreign Body Removal: Earbud piece, from the right ear canal, by using alligator rn clamps, The patient tolerated the removal well. MDM: 23:15 Patient medically screened. rn 23:15 Data reviewed: vital signs, nurses notes, and as a result, I will discharge patient. rn Counseling: I had a detailed discussion with the patient and/or guardian regarding: the historical points, exam findings, and any diagnostic results supporting the discharge/admit diagnosis, the need for outpatient follow up, to return to the emergency department if symptoms worsen or persist or if there are any questions or concerns that arise at home. Response to treatment: the patient's symptoms have resolved after treatment, and as a result, I will discharge patient. Special discussion: I discussed with the patient/guardian in detail that at this point there is no indication for admission to the hospital. It is understood, however, that if the symptoms persist or worsen the patient needs to return immediately for re-evaluation. Administered Medications: No medications were administered Disposition Summary: 11/21/20 23:19 Discharge Ordered Location: Home rn Problem: new rn Symptoms: have improved rn Condition: Stable rn Diagnosis - Foreign body in right ear rn Followup: rn - With: Private Physician - When: As needed - Reason: Recheck today's complaints, Re-evaluation by your physician Discharge Instructions: - Discharge Summary Sheet rn - Ear Foreign Body rn Forms: - Medication Reconciliation Form rn - Thank You Letter rn - Antibiotic director of distance learning - Prescription Opioid Use rn Signatures: Nikolas Lee MD MD rn Graham, Kristen, RN RN kg
--- NOTE | 2020-11-21 23:20 | ER ---
Nurse's Notes [facility] Name: Afshin Mercado Age: 65 yrs Sex: Male : 1955 Arrival Date: 11/21/2020 Time: 22:38 Bed Waiting Private MD: Edmond Francisco V Diagnosis: Foreign body in right ear Presentation: 11/21 23:12 Chief complaint: Patient states: End of ear bud stuck in right ear canal. Coronavirus kg screen: Client denies travel out of the [place] in the last 14 days. At this time, unable to obtain information related to travel outside the [place] At this time, the client does not indicate any symptoms associated with coronavirus-19. Ebola Screen: Patient negative for fever greater than or equal to 101.5 degrees Fahrenheit, and additional compatible Ebola Virus Disease symptoms Patient denies exposure to infectious person. Patient denies travel to an Ebola-affected area in the 21 days before illness onset. Initial Sepsis Screen: Does the patient meet any 2 criteria? No. Patient's initial sepsis screen is negative. Does the patient have a suspected source of infection? No. Patient's initial sepsis screen is negative. Risk Assessment: Do you want to hurt yourself or someone else? Patient reports no desire to harm self or others. Onset of symptoms was November 21, 2020. 23:12 Method Of Arrival: Ambulatory kg 23:12 Acuity: LINDA 4 kg Triage Assessment: 23:15 General: Appears in no apparent distress. Behavior is calm, cooperative, appropriate kg for age, quiet. Pain: Denies pain. Historical: - Allergies: 23:15 NKA; kg - PMHx: 23:15 Degenerative disc disease; Hyperlipidemia; Hypertension; kg - Immunization history:: Adult Immunizations up to date, Client reports receiving the 2nd dose of the Covid vaccine, Date received: July 01, 2020 [employer] Client reports receiving the 1st dose of the Covid vaccine, June 03, 2020 [employer]. - Social history:: Smoking status: Patient/guardian denies using tobacco, but has a distant history of tobacco abuse. - Family history:: not pertinent. - Hospitalizations: : No recent hospitalization is reported. Screenin/12 00:13 Abuse screen: Denies threats or abuse. Denies injuries from another. Nutritional kg screening: No deficits noted. Tuberculosis screening: No symptoms or risk factors identified. Fall Risk None identified. Vital Signs: 11/21 23:12 BP 134 / 98; Pulse 75; Resp 20; Temp 98.2(TE); Pulse Ox 99% ; Weight 87.09 kg (R); kg Height 5 ft. 8 in. (172.72 cm); Pain 0/10; 23:12 Body Mass Index 29.19 (87.09 kg, 172.72 cm) kg ED Course: 22:38 Patient arrived in ED. es 22:39 Edmond Francisco MD is Private Physician. es 23:15 Triage completed. kg 23:15 Nikolas Lee MD is Attending Physician. rn 23:15 Arm band placed on. kg 11/22 00:13 Layla Xiong, RADHA is Primary Nurse. kg 00:13 Patient has correct armband on for positive identification. kg 00:13 No provider procedures requiring assistance completed. Patient did not have IV access kg during this emergency room visit. Administered Medications: No medications were administered Outcome: 11/21 23:19 Discharge ordered by . rn 11/22 00:13 Discharged to home ambulatory. kg Condition: good Discharge instructions given to patient, Instructed on discharge instructions, follow up and referral plans. Demonstrated understanding of instructions, follow-up care. 00:14 Patient left the ED. kg Signatures: Vesta Jonas Roman, MD MD rn Graham, Kristen, RN RN kg Corrections: (The following items were deleted from the chart) 00:13 11/21 23:12 Pulse 75bpm; Resp 20bpm; Pulse Ox 99%; Temp 98.2F Temporal; 87.09 kg kg Reported; Height 5 ft. 8 in.; BMI: 29.1; Pain 0/10; kg
[2020-11-22 00:59] VITALS: BP 134/98; TEMP 98.2; O2SAT 99
== END 2020-11-22 00:14 | disposition home or self-care (01) ==
LOC: ER 22:35
PROC: 09C3XZZ Extirpation of Matter from Right External Auditory Canal, External Approach (ICD-10-PCS; principal; 2020-11-22)
DX: T16.1XXA Foreign body in right ear, initial encounter (principal); I10 Essential (primary) hypertension
CPT/HCPCS: 99281

== ENCOUNTER 2024-07-02 10:58 | Emergency (ER) | payer OTHER, BC ==
--- NOTE | 2024-07-02 11:41 | RAD REPORT ---
Procedure: Chest Single View HISTORY: Cough COMPARISON: 2022 FINDINGS: The lungs appear clear of acute infiltrate. No significant pleural effusion noted. The heart is normal size. IMPRESSION: No acute abnormality is displayed.
[2024-07-02 12:03] LABS: Absolute Basophils 0.1 K/uL (0-0.5); Absolute Eosinophils 0.1 K/uL (0-0.5); Absolute Lymphocytes (CBC) 1.3 K/uL (0.7-4.9); Absolute Neutrophil 5.4 K/uL (1.8-8.0); Basophils % 0.7 % (0-1.3); Eosinophils % 1.1 % (0-4.4); Hematocrit 40.3 % (39.6-49.0); Hemoglobin 14.3 g/dL (13.6-17.9); Lymphocytes % 17.1 % (15.3-44.8); MCH 31.3 pg (27.0-35.0); MCHC 35.5 g/dL (32.0-36.0); MCV 87.9 fL (80-100); Monocytes % 12.5 % (3.3-12.3); Neutrophils % 68.6 % (41.7-73.7); Platelets 185 thou/uL (152-406); RBC Red Blood Cell Count 4.58 M/uL (4.33-5.43); Red Cell Distribution Width 13.1 % (12.1-15.2)
[2024-07-02 12:22] LABS: ALT/SGPT 20 U/L (16-61); Albumin 3.5 g/dL (3.4-5.0); Albumin/Globulin Ratio 1.1 (1.1-1.8); Alkaline Phosphatase 69 U/L (45-117); Anion Gap 5.7 mEq/L (5.0-15.0); BUN Blood Urea Nitrogen 13 mg/dL (7-18); Bicarbonate 29 mEq/L (21-32); Bilirubin Direct 0.2 mg/dL (0-0.2); Bilirubin Indirect, Calculated 0.7 mg/dL (0.2-0.8); Bilirubin Total 0.9 mg/dL (0.2-1.0); Globulin 3.2 g/dL (2.3-3.5); Glomerular Filtration Rate 94 ml/min (=/>90); Glucose Level 105 mg/dL (74-106); NT PRO-BNP 130 pg/mL (<125); Potassium 3.7 mEq/L (3.5-5.1); Protein, Total 6.7 g/dL (6.4-8.2); Sodium Level 136 mEq/L (136-145); Troponin High Sensitivity 6.1 pg/mL (<58.9)
[2024-07-02 12:25] LABS: Influenza A Ag Negative; Influenza B Ag Negative; SARS-CoV-2 Antigen Rapid Res Negative (Negative)
[2024-07-02 12:27] LABS: AST/SGOT < 10 U/L (15-37)
--- NOTE | 2024-07-02 13:23 | ER ---
Nurse's Notes [facility] Name: Afshin Mercado Age: 69 yrs Sex: Male : 1955 Arrival Date: 07/02/2024 Time: 10:58 Bed 13 Private MD: Diagnosis: Upper respiratory infection, viral illness Presentation: 07/02 11:06 Chief complaint: Patient states: Cough, congestion, sore throat, FINLEY started Thursday ll1 night. Coronavirus screen: Client denies travel out of the [place] in the last 14 days. congestion, cough unrelated to allergies, fatigue, fever, headache, Client presents with at least one sign or symptom that may indicate coronavirus-19. Standard/surgical mask placed on the client. Ebola Screen: Patient denies travel to an Ebola-affected area in the 21 days before illness onset. Initial Sepsis Screen: Does the patient meet any 2 criteria? No. Patient's initial sepsis screen is negative. Does the patient have a suspected source of infection? No. Patient's initial sepsis screen is negative. Risk Assessment: Do you want to hurt yourself or someone else? Patient reports no desire to harm self or others. Onset of symptoms was June 29, 2024. 11:06 Method Of Arrival: Ambulatory ll1 11:06 Acuity: LINDA 4 ll1 11:56 Acuity: LINDA 3 ap3 Triage Assessment: 11:06 General: Appears uncomfortable, Behavior is calm, cooperative, appropriate for age, ll1 Reports fatigue for. Pain: Complains of pain in throat. EENT: Reports nasal congestion pain when swallowing. Neuro: Reports headache weakness. Respiratory: Reports cough that is. Historical: - Allergies: 11:06 NKA; ll1 - PMHx: 11:06 Degenerative disc disease; Hyperlipidemia; Hypertension; ll1 - PSHx: 11:06 2 stents (en); bone spur SX (en); ll1 - Immunization history:: Adult Immunizations up to date. - Infectious Disease History:: Denies. - Social history:: Smoking status: Patient/guardian denies using tobacco. Screenin:00 [facility] ED Fall Risk Assessment (Adult) History of falling in the last 3 months, ap3 including since admission No falls in past 3 months (0 pts) Confusion or Disorientation No (0 pts) Intoxicated or Sedated No (0 pts) Impaired Gait No (0 pts) Mobility Assist Device Used No (0 pt) Altered Elimination No (0 pt) Score/Fall Risk Level 0 - 2 = Low Risk Oriented to surroundings, Maintained a safe environment, Educated pt \T\ family on fall prevention, incl call for assistance when getting out of bed, Assessed \T\ reinforced patient's understanding of fall precautions, Hourly rounding (assess needs \T\ fall precautionary measures) done, Used ambulatory aids as needed (educated on \T\ assisted with). Abuse screen: Denies threats or abuse. Nutritional screening: No deficits noted. Tuberculosis screening: No symptoms or risk factors identified. Assessment: 11:59 General: Appears in no apparent distress. Behavior is calm, cooperative, appropriate ap3 for age. Pain: Complains of pain in generalized body aches Pain began gradually, 2-3 days ago. Neuro: Level of Consciousness is awake, alert, obeys commands, Oriented to person, place, time, situation, Appropriate for age. Cardiovascular: Patient's skin is warm and dry. Respiratory: Reports cough that is Airway is patent Respiratory effort is even, unlabored, Respiratory pattern is regular, symmetrical. Vital Signs: 11:06 BP 140 / 69; Pulse 60; Resp 18; Temp 98.4; Pulse Ox 99% ; Weight 86.18 kg; Height 5 ft. ll1 8 in. ; Pain 6/10; 12:00 BP 128 / 68; Pulse 54; Resp 10; Pulse Ox 97% ; me1 13:00 BP 135 / 67; Pulse 53; Resp 12; Pulse Ox 98% ; me1 13:28 BP 137 / 67; Pulse 52; Resp 16; Temp 98.7; Pulse Ox 96% ; me1 11:06 Body Mass Index 28.89 (86.18 kg, 172.72 cm) ll1 11:06 Pain Scale: Adult ll1 ED Course: 11:01 Patient arrived in ED. rg4 11:01 Prashant Robles MD is Attending Physician. sp3 11:05 Arm band placed on. ll1 11:07 Triage completed. ll1 11:22 XRAY Chest (1 view) In Process Unspecified. EDMS 11:30 Heena Alvarez, RADHA is Primary Nurse. ap3 11:54 Initial lab(s) drawn, by me, sent to lab. Inserted saline lock: 20 gauge in right ap3 antecubital area, using aseptic technique. Blood collected. Flushed with 10 mL NS. 12:05 Patient has correct armband on for positive identification. Bed in low position. Call me1 light in reach. Side rails up X 1. Provided Education on: POC. Verbalized understanding.. 12:05 No provider procedures requiring assistance completed. me1 12:11 EKG done, by ED staff, reviewed by Prashant Robles MD. me1 13:37 IV discontinued, intact, bleeding controlled, No redness/swelling at site. Pressure me1 dressing applied. Administered Medications: No medications were administered Medication: 13:36 VIS not applicable for this client. me1 Outcome: 13:22 Discharge ordered by . sp3 13:37 Discharged to home ambulatory, me1 13:37 Condition: stable 13:37 Discharge instructions given to patient, Instructed on discharge instructions, follow up and referral plans. Demonstrated understanding of instructions, follow-up care, 13:37 Patient left the ED. me1 Signatures: Dispatcher [employer] Kenia Connolly rg4 Heena Alvarez RN RN ap3 Kathy Hdez RN RN ll1 Prashant Robles MD MD sp3 Lori Pandey RN RN me1
--- NOTE | 2024-07-02 13:23 | EDPHYS ---
Physician Documentation [facility] Name: Afshin Mercado Age: 69 yrs Sex: Male : 1955 Arrival Date: 07/02/2024 Time: 10:58 Bed 13 Private MD: ED Physician Prashant Robles HPI: 07/02 12:19 This 69 yrs old Male presents to ER via Ambulatory with complaints of Flu Symptoms. sp3 12:19 69-year-old male with a history of hypertension, hyperlipidemia presents with cough, sp3 congestion shortness of breath and flulike symptoms for 2 days. He denies any fever. He denies any chest pain, back pain, abdominal pain, nausea, vomit, diarrhea, syncope, near syncope, rash, known sick contacts, travel history, prolonged immobilization, or any other signs or symptoms on ROS at this time.. Historical: - Allergies: 11:06 NKA; ll1 - PMHx: 11:06 Degenerative disc disease; Hyperlipidemia; Hypertension; ll1 - PSHx: 11:06 2 stents (en); bone spur SX (en); ll1 - Immunization history:: Adult Immunizations up to date. - Infectious Disease History:: Denies. - Social history:: Smoking status: Patient/guardian denies using tobacco. ROS: 12:19 Constitutional: Negative for fever, chills, and weight loss, Eyes: Negative for injury, sp3 pain, redness, and discharge, ENT: Negative for injury, pain, and discharge, Neck: Negative for injury, pain, and swelling, Cardiovascular: Negative for chest pain, palpitations, and edema, Abdomen/GI: Negative for abdominal pain, nausea, vomiting, diarrhea, and constipation, Back: Negative for injury and pain, MS/Extremity: Negative for injury and deformity, Skin: Negative for injury, rash, and discoloration, Neuro: Negative for headache, weakness, numbness, tingling, and seizure, Psych: Negative for depression, anxiety, suicide ideation, homicidal ideation, and hallucinations, Allergy/Immunology: Negative for hives, rash, and allergies, Endocrine: Negative for neck swelling, polydipsia, polyuria, polyphagia, and marked weight changes, Hematologic/Lymphatic: Negative for swollen nodes, abnormal bleeding, and unusual bruising, 12:19 All other systems are negative, Exam: 12:20 Constitutional: This is a well developed, well nourished patient who is awake, alert, sp3 and in no acute distress. Head/Face: Normocephalic, atraumatic. Eyes: Pupils equal round and reactive to light, extra-ocular motions intact. Lids and lashes normal. Conjunctiva and sclera are non-icteric and not injected. Cornea within normal limits. Periorbital areas with no swelling, redness, or edema. ENT: Nares patent. No nasal discharge, no septal abnormalities noted. External auditory canals are clear. Oropharynx with no redness, swelling, or masses, exudates, or evidence of obstruction, uvula midline. Mucous membranes moist. Neck: Trachea midline, no thyromegaly or masses palpated, and no cervical lymphadenopathy. Supple, full range of motion without nuchal rigidity, or vertebral point tenderness. No Meningismus. Chest/axilla: Normal chest wall appearance and motion. Nontender with no deformity. No lesions are appreciated. Cardiovascular: Regular rate and rhythm with a normal S1 and S2. No gallops, murmurs, or rubs. Normal PMI, no JVD. No pulse deficits. Respiratory: Lungs have equal breath sounds bilaterally, clear to auscultation and percussion. No rales, rhonchi or wheezes noted. No increased work of breathing, no retractions or nasal flaring. Abdomen/GI: Soft, non-tender, with normal bowel sounds. No distension or tympany. No guarding or rebound. No evidence of tenderness throughout. Back: No spinal tenderness. No costovertebral tenderness. Full range of motion. Skin: Warm, dry with normal turgor. Normal color with no rashes, no lesions, and no evidence of cellulitis. MS/ Extremity: Pulses equal, no cyanosis. Neurovascular intact. Full, normal range of motion. Neuro: Awake and alert, GCS 15, oriented to person, place, time, and situation. Cranial nerves II-XII grossly intact. Motor strength 5/5 in all extremities. Sensory grossly intact. Cerebellar exam normal. Normal gait. Psych: Awake, alert, with orientation to person, place and time. Behavior, mood, and affect are within normal limits. 12:20 ECG was reviewed by the Attending Physician. EKG demonstrates sinus bradycardia at 54 bpm with normal intervals, normal QRS, normal axis, normal ST/T-segment's without evidence of acute ischemia. Vital Signs: 11:06 BP 140 / 69; Pulse 60; Resp 18; Temp 98.4; Pulse Ox 99% ; Weight 86.18 kg; Height 5 ft. ll1 8 in. ; Pain 6/10; 12:00 BP 128 / 68; Pulse 54; Resp 10; Pulse Ox 97% ; me1 13:00 BP 135 / 67; Pulse 53; Resp 12; Pulse Ox 98% ; me1 13:28 BP 137 / 67; Pulse 52; Resp 16; Temp 98.7; Pulse Ox 96% ; me1 11:06 Body Mass Index 28.89 (86.18 kg, 172.72 cm) ll1 11:06 Pain Scale: Adult ll1 MDM: 11:08 Medical Screening Exam initiated sp3 12:20 Data reviewed: vital signs, nurses notes, lab test result(s), EKG, radiologic studies. sp3 ED course: 69-year-old male with PMH above now with cough, congestion, shortness of breath and flulike symptoms. Differential diagnosis includes viral illness, influenza, COVID-19, strep pharyngitis, bronchitis, pneumonia to lesser degree CHF or other cardiac event. I am not highly suspicious of ACS, sepsis, shock any other critical process. Patient is a 9% on room air with normal vital signs. EKG is normal and chest x-ray is normal. Labs pending. Disposition pending workup and patient course.. 13:22 ED course: Full workup negative. Patient is stable. We will safely discharge patient sp3 home with diagnosis of viral illness send upper respiratory infection OTC meds as needed.. 07/02 11:08 Order name: COVID-19 Ag + Flu A+B Ag; Complete Time: 13:07 3 07/02 11:09 Order name: Basic Metabolic Panel; Complete Time: 13:07 3 07/02 11:09 Order name: CBC with Diff; Complete Time: 12:18 3 07/02 11:09 Order name: LFT's; Complete Time: 13:07 3 07/02 11:09 Order name: NT PRO-BNP; Complete Time: 13:07 3 07/02 11:09 Order name: Troponin HS; Complete Time: 13: 3 07/02 11:32 Order name: Group A Streptococcus Rapid; Complete Time: 12:18 sp3 07/02 12:16 Order name: Throat Culture EDMS 07/02 11:09 Order name: XRAY Chest (1 view); Complete Time: 12:18 sp3 07/02 11:09 Order name: Cardiac monitoring; Complete Time: 11:33 sp3 07/02 11:09 Order name: EKG - Nurse/Tech; Complete Time: 12:11 sp3 07/02 11:09 Order name: IV Saline Lock; Complete Time: 11:55 sp3 07/02 11:09 Order name: Labs collected and sent; Complete Time: 11:55 sp3 07/02 11:09 Order name: O2 Per Protocol; Complete Time: 11:33 sp3 07/02 11:09 Order name: O2 Sat Monitoring; Complete Time: 11:33 sp3 Administered Medications: No medications were administered Disposition Summary: 07/02/24 13:22 Discharge Ordered Notes: Location: Home sp3 Condition: Stable sp3 Diagnosis - Upper respiratory infection, viral illness sp3 Followup: sp3 - With: Private Physician - When: Upon discharge from the Emergency Department - Reason: Continuance of care Discharge Instructions: - Discharge Summary Sheet sp3 - Viral Illness, Adult sp3 Forms: - Medication Reconciliation Form sp3 - Antibiotic Education sp3 - Prescription Opioid Use sp3 - Patient Portal Instructions sp3 - Leadership Thank You Letter sp3 Signatures: Dispatcher [employer] Kathy Marroquin, RADHA RN ll1 Prashant Robles MD MD sp3 Lroi Pandey RN RN me1 Corrections: (The following items were deleted from the chart) 11: 11:09 BASIC METABOLIC PANEL+C.LAB.BRZ ordered. EDMS EDMS 11: 11:09 CBC+H.LAB.BRZ ordered. EDMS EDMS 11: 11:09 HEPATIC FUNCTION+C.LAB.BRZ ordered. EDMS EDMS 11: 11:09 PROBNP+C.LAB.BRZ ordered. EDMS EDMS 11: 11:09 Troponin High Sensitivity+C.LAB.BRZ ordered. EDMS EDMS 11: 11:09 Chest Single View+RAD.RAD.BRZ ordered. EDMS EDMS
[2024-07-02 13:55] VITALS: BP 137/67; TEMP 98.7; O2SAT 96
--- NOTE | 2024-07-04 12:05 | EKG ---
Test Date: 2024-07-02 Test Time: 12:04:23 Coper Hand: MEASUREMENT RESULTS: Intervals: Rate: 54 LA: 154 QRSD: 84 QT: 428 QTc: 405 [place]: P: 76 LA: 154 QRS: 27 T: 11 INTERPRETIVE STATEMENTS: Sinus bradycardia Low voltage QRS T wave abnormality, consider anterior ischemia Abnormal ECG Compared to ECG 02/28/2015 11:53:24 Low QRS voltage now present T-wave abnormality now present Possible ischemia now present Sinus rhythm no longer present ST (T wave) deviation no longer present Electronically Signed On 07-04-24 12:00:24 CDT by Lewis Davalos
== END 2024-07-02 13:37 | disposition home or self-care (01) ==
LOC: ER 10:58
DX: J06.9 Acute upper respiratory infection, unspecified (principal); B34.9 Viral infection, unspecified; Z11.52 Encounter for screening for COVID-19; I10 Essential (primary) hypertension
CPT/HCPCS: 36415; 71045; 80048; 80076; 83880; 84484; 85025; 87070; 87428; 93005; 99284